=== PATIENT | male | born 1950 | race Caucasian/White ===

== ENCOUNTER 2016-07-15 18:17 | Inpatient (IN) | payer OTHER ==
[2016-07-15] MEDS ORDERED: HEPARIN IV ONE (18:44)
[2016-07-15] MEDS ORDERED: ALBUTEROL NEB INH ONE (18:47)
[2016-07-15] MEDS ORDERED: DUONEB (A & A) INH ONE (18:47)
--- NOTE | 2016-07-15 18:48 | PROVIDER DOCUMENTATION ---
HPI-Respiratory General <King Connors - Last Filed: 07/15/16 18:55> - General Source: patient - History of Present Illness-Resp Severity in ED: reports: moderate Onset/Duration: reports: other (1 month) Timing: reports: still present Cough Quality/Degree: reports: mild, dry cough Current Respiratory Medication Therapy: Initiated see nurses note Associated Symptoms: reports: cough, dizziness, shortness of breath Similar Symptoms Previously?: No Recently seen or treated by another doctor?: Yes <Mindy North - Last Filed: 07/15/16 19:57> - General Chief Complaint: Shortness of Breath Time Seen by Provider: 07/15/16 18:21 Allergies/Adverse Reactions: Patient Allergies Allergy/AdvReac Type Severity Reaction Status Date / Time No Known Allergies Allergy Verified 09/20/13 15:38 Home Medications: Home Medication List Medication Instructions Recorded Confirmed Last Taken Type Esomeprazole [Nexium] 20 mg PO DAILY 05/02/12 09/15/15 09/15/15 History Amlodipine [Norvasc] 5 mg PO DAILY 05/05/12 09/15/15 09/15/15 History Losartan [Cozaar] 100 mg PO DAILY 05/05/12 09/15/15 09/15/15 History Duloxetine [Cymbalta] 120 mg PO DAILY 07/04/12 09/15/15 09/15/15 History ATORVAstatin [Lipitor] 10 mg PO DAILY 08/23/13 09/15/15 09/14/15 History Ondansetron [Zofran] 4 mg PO Q6H PRN PRN 08/23/13 09/15/15 09/25/13 12:00 History Sennosides/Docusate Sodium [Stool 1 each PO PRN PRN 08/23/13 09/15/15 08/21/13 08:00 History Softener Tablet] Armodafinil [Nuvigil] 250 mg PO DAILY 09/15/15 09/15/15 09/15/15 History Aspirin [Aspirin EC] 81 mg PO DAILY 09/15/15 09/15/15 09/15/15 History Celecoxib [Celebrex] 200 mg PO DAILY 09/15/15 09/15/15 09/15/15 History Dicyclomine [Bentyl] 10 mg PO AC + HS #10 capsule 09/15/15 Unknown Rx Fluticasone/Salmeterol [Advair 1 each IH BID 09/15/15 09/15/15 09/15/15 History 250-50 Diskus] Lorazepam [Ativan] 1 mg PO QHS 09/15/15 09/15/15 09/14/15 History Ondansetron HCl [Zofran] 4 mg PO Q4H PRN PRN #20 tablet 09/15/15 Unknown Rx - History of Present Illness-Resp Nature of Presenting Problem: 66 year old M presents to the ED with a cc of shortness of breath. PT states that 1 month ago he began getting epidural injections to his c-spine. PT states that between his first and second injection he began getting shortness of breath and some cough. PT was seen and received steroid shot, antibiotics, and inhaler for what he thought was bronchitis. Pt states that he followed up yesterday with his orthopedic doctor and explained his shortness of breath which since his last visit with a doctor has increased. PTs orthopedic doctor called pts PCP, Dr. Aaron Ruiz, for a follow up visit yesterday or today. Pt states that he got an appointment today with Dr. Ruiz. On arrival to his office, pts O2 sat was 74-75% on room air. PT was sent to the ED for labs and a CT. Dr. Ruiz called and discussed with Dr. Connors the CT results which showed bilateral PE. PT states in the last few days he has had ABD bloating, dizziness, nausea, and diarrhea. PT states 3 days ago he had some calf muscle tenderness but it resolved the next day. PT denies leg swelling, chest pain, or vomiting (Mindy North) Review of Systems - Adult - REVIEW OF SYSTEMS - ADULT Constitutional: denies: chills, fever Eyes: reports: no symptoms reported Ears, Nose, Mouth & Throat: denies: ear pain, sinus problem, throat pain Cardiovascular: denies: chest pain, edema, palpitations Respiratory: reports: cough, shortness of breath Gastrointestinal: reports: diarrhea, nausea. denies: abdominal pain, vomiting Genitourinary: reports: no symptoms reported Musculoskeletal: denies: muscle aches, muscle weakness Integumentary: denies: skin sores/ulcer, skin thickening Neurological: reports: dizziness/vertigo. denies: headache/migraines Psychiatric: reports: no symptoms reported Endocrine: reports: no symptoms reported Hematologic/Lymphatic: reports: no symptoms reported Allergic/Immunologic: reports: no symptoms reported All Other Systems: Reviewed and Negative <Mindy North - Last Filed: 07/15/16 19:57> Past History - Adult - PAST MEDICAL HISTORY-ADULT Review of Records: reports: Nursing Assessment Review, Medications Reviewed Major Childhood Illnesses: reports: denies history Cardiovascular: reports: HTN, hyperlipidemia, DC, other (small AAA) Respiratory: reports: COPD, sleep apnea Gastrointestinal: reports: GERD Obstetrical/Gynecological: reports: denies history Genitourinary: reports: denies history Musculoskeletal: reports: chronic pain Neurological: reports: denies history Endocrine/Immune: reports: Diabetes Other Conditions: reports: denies history - PRIOR SURGERIES/PROCEDURES Surgical/Procedure History: reports: cardiac stent, hernia repair, joint replacement, back/neck, other (TURP, retnia detachment) - IMMUNIZATION STATUS Childhood Immunizations: See Nurse Assessment Flu Vaccine: See Nurse Assessment - SOCIAL HISTORY Smoking: cigarettes, greater than 1 pack/day Provider spent 3-5 mins advising pt. on dangers of tobacco.: Discussed manners to quit use, and f/u contacts for add'l counseling. Substance Use: none/never Alcohol Use Frequency: never <Mindy North - Last Filed: 07/15/16 19:57> Physical Exam-General - PHYSICAL EXAM-ADULT Initial Vital Signs Reviewed: Yes - CONSTITUTIONAL General Appearance: appears well, alert, no apparent distress - RESPIRATORY Respiratory: chest non-tender, normal breath sounds, crackles (diffuse) - CARDIOVASCULAR Cardiovascular: normal peripheral pulses, regular rate, rhythm, no edema - GASTROINTESTINAL (ABDOMEN) Abdominal Exam: non tender, soft - MUSCULOSKELETAL Extremity: normal inspection, no pedal edema - SKIN Integumentary: normal color, normal turgor, warm/dry - PSYCHIATRIC Psych/Mental Status: normal mood/affect, normal thought content, normal thought process, oriented x 3 <Mindy North - Last Filed: 07/15/16 19:57> Progress - CT/MRI 1 CT Study: Angiogram (show fairly proximal and extensive right sided PE and segmental left sided PE, extensive changes of multiple bullae/COPD) <King Connors - Last Filed: 07/15/16 18:55> - EKG 1 Time of EKG reading by physician:: 18:31 EKG Read and Signed by:: King Connors EKG Interpretation (*Must complete 3 of following elements*): Abnormal Rate: 102 Rhythm: sinus tachycardia [place]: left Comments: possible left atrial enlargement - CONSULTS/PCP/HOSPITALIST Notification #1 *Consult/PCP/Hospitalist*: Dr. Boothe- Hospitalist Time Discussed: 19:56 Consult Disposition: Will see in ED, Admit <Mindy North - Last Filed: 07/15/16 19:57> Departure - Departure Time of Disposition Order: 18:54 Certified Medical Emergency: Emergent <King Connors - Last Filed: 07/15/16 18:55> <Mindy North - Last Filed: 07/15/16 19:57> - Departure DIAGNOSIS: Pulmonary emboli Qualifiers: Pulmonary embolism type: other Chronicity: acute Acute cor pulmonale presence: without acute cor pulmonale Qualified Code(s): I26.99 - Other pulmonary embolism without acute cor pulmonale Disposition: ADMITTED INPATIENT 09 Condition: Fair Attestation - Scribe Verification/Attestation Scribe:: Mindy North Acting as Scribe for:: King Connors Scribe documention review:: This chart was documented by a scribe and accurately reflects the service the provider performed and the decisions made by the provider. <Mindy North - Last Filed: 07/15/16 19:57> Physician Attestation - Physician Attestation I, the provider, attest to the following statement:: King Connors Physician documentation Attestation:: This documentation recorded by the scribe accurately reflects the service I personally performed and the decisions made by me. <Mindy North - Last Filed: 07/15/16 19:57>
[2016-07-15] MEDS ORDERED: ZOFRAN IV ONE (18:49)
[2016-07-15] MEDS ORDERED: NICODERM PATCH TD ONE (18:57)
[2016-07-15] MEDS: HEPARIN 25,000 UNITS/D5W 250 ML IV SCH (19:13)
[2016-07-15] MEDS ORDERED: TYLENOL PO PRN (23:42)
[2016-07-15] MEDS ORDERED: ZOFRAN IV PRN (23:42)
[2016-07-16 01:11] LABS: HEMOGLOBIN A1C 8.8 % (4.8-6.0)
[2016-07-16] MEDS: HUMALOG SUBQ SCH ×5 (03:14→21:32)
[2016-07-16 05:01] LABS: ALLEN TEST YES; BE 2.2 mmoll (-3.0-3.0); BLOOD TYPE ARTERIAL; DRAW SITE R RADIAL; METHB 1.3 % (0.0-1.5); O2(CT) 17.3 mL/dL (15.0-23.0); PCO2(98.6) 46 mmHg (35-45); PO2(98.6) 53 mmHg (60-100); SAMPLE BLOOD; SAO2 88.4 % (95.0-100.0); THB 14.5 g/dL (11.5-17.4); pH(98.6) 7.39 (7.35-7.45)
[2016-07-16 05:04] LABS: MODALITY VENTIMASK
--- NOTE | 2016-07-16 05:26 | HISTORY AND PHYSICAL ---
PRIMARY CARE PROVIDER: Dr. Aaron Ruiz. DATE AND TIME OF HISTORY AND PHYSICAL: July 15, 2016 at 2300. CHIEF COMPLAINT: Shortness of breath. HISTORY OF PRESENT ILLNESS: Mr. Enrique is a 66-year-old male who presented to the ER tonight after visiting his family doctor. Patient states yesterday that he was following up with his orthopedic doctor for a checkup after receiving an cervical epidural injection. He did report to his orthopedic doctor that he was having some shortness of breath. His physician was able to call Dr. Ruiz and get him an appointment for earlier today on July 15. Upon arrival to Dr. Ruiz's office, the patient's O2 saturation was 74%. Secondary to this, Dr. Ruiz did order stat labs as well as a stat CTA of the chest. His CTA pulmonary artery showed a fairly proximal and extensive right-sided PE and segmental left-sided PE. There were also extensive changes of multiple bullae and COPD changes. The patient reports that he had been short of breath for approximately 3 weeks. This has just progressively gotten worse. He did state that approximately 2 weeks ago that he did get seen at an urgent care, was given steroids, antibiotics, and inhaler for what was believed to be bronchitis. He also states for the past few days in addition to his shortness of breath that he has had abdominal bloating, dizziness, nausea, and diarrhea. Patient reports that his diarrhea has been going on for the past month though this weekend he did have up to 10 episodes of diarrhea in 1 day. The patient denies any headache, chest pain, abdominal pain, dysuria, urinary frequency, or pain, numbness or tingling in extremities. Upon arrival to the ER, the patient's oxygen saturation was 74% on room air. After placing the patient on nasal cannula, his oxygen saturation did improve into the low 80s. We have steadily increased his nasal cannula to up to 6 L though he is only reaching oxygen saturation of 88 so at this time we will switch him to a Ventimask. Patient has also already been started on the heparin drip per protocol by Dr. Connors, the ER physician. REVIEW OF SYSTEMS: A 14-point review of systems was conducted with the patient and all were negative except for pertinent positives mentioned in above HPI. PAST MEDICAL HISTORY: 1. Coronary artery disease status post myocardial infarction with stent placement in 2012. 2. COPD. 3. Diabetes mellitus type 2. 4. Gastroesophageal reflux disease. 5. Hyperlipidemia. 6. Hypertension. 7. Chronic pancreatitis. 8. Small abdominal aortic aneurysm for which he reports that his physician is currently just monitoring. 9. Patient also has chronic neck and low back pain. PAST SURGICAL HISTORY: 1. Cardiac stent placement in 2013 times 1. 2. Lumbar diskectomy with fusion. 3. Bilateral total knee replacements. 4. TURP. 5. Penile prosthesis. 6. Inguinal hernia surgery. 7. Umbilical hernia surgery. 8. Bilateral cataract surgery. SOCIAL HISTORY: He reports that he is a current everyday smoker and did previously smoke 2-1/2 packs per day though has now reduced this down to 1 pack per day within the last few weeks and does express that he is trying to quit smoking. He denies any alcohol or illicit drug use. He is retired and lives at home with his . FAMILY HISTORY: Positive for heart disease and hypertension in his father who in 2012. His mother has a history of hypertension, and abdominal aortic aneurysm and dementia, and she in 2013. He does have 1 sister who is healthy and 1 brother who has a history of brain cancer. ALLERGIES: No known allergies. HOME MEDICATIONS: 1. Norvasc 5 mg p.o. daily. 2. Nuvigil 250 mg p.o. daily. 3. Aspirin 81 mg p.o. daily. 4. Atenolol 25 mg p.o. daily. 5. Atorvastatin 10 mg p.o. daily. 6. Celebrex 200 mg p.o. daily. 7. Cymbalta 120 mg p.o. daily. 8. Advair Diskus 250/50 one inhaled twice daily. 9. Cozaar 100 mg p.o. daily. 10.Omeprazole 40 mg p.o. daily. 11.Zofran 4 mg p.o. q.4-6 hours p.r.n. for nausea. DIAGNOSTIC DATA: Laboratory results: White blood cell count 11.5. Hemoglobin 15.1. Hematocrit 46.1. Platelet count 314. PTT 27.8. D-dimer was 1.81. Sodium 130. Potassium 4.1. Chloride 91. Bicarbonate 27. BUN 13. Creatinine 0.8 with a GFR of greater than 60. Glucose 221. Hemoglobin A1c 8.8. Calcium 9.4. Liver function tests are within normal limits. Troponin less than 0.01. CK 57. Amylase 47. Lipase 28. TSH 1.2. Free T4 of 1.38. EKG showed sinus tachycardia with a possible left atrial enlargement and left axis deviation at a rate of 102. QTc was 445. CTA of pulmonary artery showed fairly proximal and extensive right-sided PE, and segmental left- sided PE, and extensive changes of multiple bullae, and COPD changes. PHYSICAL EXAMINATION: VITAL SIGNS: Temperature 98, respirations 22, heart rate 97, blood pressure is 117/81, oxygen saturation is 88% on Ventimask at 10 L. GENERAL: Mr. Enrique is a well-nourished, well-developed, pleasant 66-year-old male who is resting comfortably in the ER stretcher. He was in no acute distress. He was awake, alert, and able to answer all questions appropriately. HEENT: Head is atraumatic, normocephalic. Pupils are equal, round, reactive to light, are 3 mm bilaterally and brisk. Subconjunctivae are pink. Oral mucosa is moist. Oropharynx is clear. NECK: Supple. Trachea midline. No JVD noted. No carotid bruits noted upon auscultation bilaterally. CARDIOVASCULAR: Patient has normal S1, S2. No obvious murmurs, gallops, or rubs appreciated with a regular rate and rhythm. PULMONARY: Patient has symmetrical chest expansion bilaterally. Lung sounds are clear in upon presentation lung mcgraw though in lower lung mcgraw he does have slight crackles noted. ABDOMEN: Soft. Does appear to be slightly distended though is nontender. Patient's bowel sounds are present in all 4 quadrants, are normoactive. EXTREMITIES: No cyanosis, clubbing or edema noted. Pulse, motor, and sensory are intact in all extremities at this time. Pedal pulses as well as radial pulses are 3 plus bilaterally. Capillary refill is less than 3. Patient has negative Homans sign noted in bilateral lower extremities. INTEGUMENTARY: Patient's skin is pink, warm, dry, and intact. No lesions or sores noted. NEUROLOGICAL: Patient is alert and oriented to person, place, time, and situation. Cranial nerves II through XII are grossly intact. ASSESSMENT AND PLAN: 1. Pulmonary embolism. For this, we have placed the patient on a heparin drip per protocol. We will closely monitor his PTT and watch for any signs of bleeding. We will also monitor his respiratory status closely. We will repeat an ABG in the morning. We also placed a consult with Dr. Whyte with pulmonology and we will await his evaluation and further recommendations as well and continue to watch him closely. 2. Hypoxia. We will continue with treatment as mentioned per number 1. Continue to follow. 3. Hypertension. At this time, the patient's blood pressure is within normal limits. The patient normally takes 3 different blood pressure medicines though at this time we will continue his Cozaar only and can continue his other medications if necessary and we will closely monitor his hemodynamic status. 4. Hyperlipidemia. We will continue his Lipitor 10 mg p.o. daily. 5. Chronic obstructive pulmonary disease. We have placed orders for the patient to receive DuoNeb treatments q.4 hours as needed and we will continue to follow. 6. Diabetes mellitus type 2. The patient reports that he normally takes metformin for this though he did receive contrast with his CT study so we will hold this at this time and place him on a sliding scale insulin lispro per low dose protocol and we will monitor his fingerstick blood sugars. The patient will be placed in ICU with telemetry. He will have vital signs q.1 hour. We will do strict intake and output q.8 hours. He will be on a diabetic diet. We have placed orders for echocardiogram as well as a venous ultrasound bilateral lower extremities in the morning to rule out any DVTs. We have placed orders for stool studies to be performed given that the patient reported that he has had diarrhea for approximately 1 month and we will await those results and continue to follow. We will repeat a CBC and BMP in the morning and we will monitor his PTT per protocol. Further orders and recommendations pending hospital course, diagnostic studies, and physician evaluation. TIME: Critical care time with this patient was approximately 40 minutes. Dictated by JODI Hamilton for Juan Boothe MD
[2016-07-16 06:38] LABS: MANUAL DIFF NEEDED? NO
[2016-07-16 06:56] LABS: BASO% 0.3 % (0.0-0.8); EOS# 0.09 X1000 (0.0-0.7); EOS% 0.8 % (0.0-10.0); HEMOGLOBIN 14.5 g/dL (14.0-18.0); IMM GRAN# 0.02 X1000 (0.0-0.04); IMM GRAN% 0.2 % (0.0-0.5); LYMPH# 1.14 X1000 (1.2-3.4); LYMPH% 9.8 % (20.5-51.1); MCH 28.6 PG (27-31); MCHC 33.7 g/dL (33-37); MCV 84.8 FL (81-99); MONO# 0.88 X1000 (0.11-0.59); MONO% 7.6 % (1.7-9.3); MPV 9.6 FL (7.4-10.4); NEUT% 81.3 % (42.2-75.2); PLT 306 X1000 (130-400); RBC 5.07 XMIL (4.7-6.1)
[2016-07-16 07:18] LABS: AGAP 14; BUN 10 mg/dL (8-22); CALCIUM 9.2 mg/dL (8.8-10.2); CHLORIDE 96 mmol/L (98-107); COSMO 276; POTASSIUM 4.6 mmol/L (3.5-5.1); SODIUM 137 mmol/L (136-145); TCO2 27 mmol/L (25-35)
[2016-07-16] MEDS ORDERED: SODIUM CHLORIDE 0.9% INJ SCH (08:30)
--- NOTE | 2016-07-16 09:12 | CONSULTATION ---
DATE OF CONSULTATION: 07/16/2016 REFERRING PHYSICIAN: Dr. Juan Boothe. CHIEF COMPLAINT: Shortness of breath. HISTORY OF PRESENT ILLNESS: This is a 66-year-old male with past medical history of CAD, COPD, diabetes, GERD, hyperlipidemia, hypertension, chronic pancreatitis that presented to the emergency room with complaint shortness of breath. He was found to be hypoxic and diagnosed with a pulmonary embolism. Patient also complains of recent abdominal bloating , dizziness, nausea and diarrhea. He is currently on a Ventimask and tolerating well. He denies any headache, chest pain, abdominal pain, history of urinary frequency, or pain, numbness or tingling to the extremities. He will be admitted to the floor for further evaluation and management and treatment. REVIEW OF SYSTEMS: A 10-point review of systems was conducted. Pertinent as noted in the HPI, otherwise noncontributory. PAST MEDICAL HISTORY: As mentioned in HPI, otherwise noncontributory. PAST SURGICAL HISTORY: Cardiac stents, lumbar diskectomy with fusion, bilateral total knee replacements, TURP, penile prosthesis, inguinal hernia repair, umbilical hernia repair, bilateral cataracts. SOCIAL HISTORY: Current 1 pack per day smoker. Denies use of alcohol or illicit drugs. Lives at home with his . FAMILY HISTORY: Notable for hypertension, AAA, dementia and brain cancer. ALLERGIES: No known drug allergies. ACTIVE MEDICATIONS: Tylenol, DuoNeb, Lipitor, heparin, Humalog, Cozaar, NicoDerm, Zofran and Pepcid. PHYSICAL EXAMINATION: Vital Signs: Temperature 98, heart rate 102, respiratory rate 19 blood pressure 142/90, oxygen saturation 98%. General: Awake, alert, sitting up in bed, no acute distress noted. HEENT: Normocephalic and atraumatic. PERRL. Cardiovascular: Regular rate and rhythm. S1, S2 present. Chest: Reduced entry. Abdomen: Soft, bowel sounds present in all quadrants. Extremities: No edema noted. Skin: Warm, dry and intact. Neurologic: Alert and oriented x3. No focal deficits. LABS AND INVESTIGATIONS: WBC 11.59, RBC is 5.7, hemoglobin 14.5, hematocrit 43 , platelet count 306. Sodium 137, potassium 4.6, chloride 96, CO2 27, anion gap 14, glucose 157 , BUN 10, creatinine 0.6. ASSESSMENT AND PLAN: This is a 66-year-old male with a past medical history mentioned in History of present illness. The patient is seen in the hospital with complaints of shortness of breath. He was found to have a pulmonary embolism, in which he will continue his heparin drip. Continue daily arterial blood gases and supply supplemental oxygen as needed. He is also found to be hypoxic, for which we will supply supplemental oxygen. COPD is a co- morbidity. The patient was also hypertensive. Continue to monitor vitals per floor routine and continue with Cozaar, as needed DuoNebs for chronic obstructive pulmonary disease, and pattern fingersticks with sliding scale insulin for his diabetes. Further recommendations pending diagnostic studies. Thanks for the courtesy of this consultation. Dictated by JODI Trevizo for Mago Whyte MD MTDD
[2016-07-16] MEDS: DUONEB (A & A) INH PRN ×3 (09:16→23:36)
[2016-07-16] MEDS: PEPCID IV SCH ×2 (09:37→21:27)
[2016-07-16] MEDS: COZAAR PO SCH (09:44)
[2016-07-16] MEDS: LIPITOR PO SCH (09:44)
[2016-07-16] MEDS: HEPARIN 25,000 UNITS/D5W 250 ML IV SCH ×2 (10:17→22:26)
[2016-07-16] MEDS ORDERED: HEPARIN 25,000 UNITS/D5W 250 ML IV SCH ×3 (11:21→22:08)
[2016-07-16] MEDS ORDERED: HEPARIN IV ONE ×2 (15:29→22:06)
[2016-07-16] MEDS: OFIRMEV 1000 MG/ISOTONIC SOLN 100 ML IV SCH ×2 (17:02→21:27)
--- NOTE | 2016-07-16 17:34 | ECHO REPORT ---
ORDER DATE: 07/16/2016 INDICATION: A 66-year-old male with pulmonary embolism, hypoxia, COPD, and coronary artery disease. M-MODE MEASUREMENTS: Right ventricle: 3.7 cm. Left ventricle end diastole: 3.5 cm. Left ventricle end systole: 2.2 cm. Posterior wall: 1.3 cm. Interventricular septum: 1.3 cm. Left atrium: 4.8 cm. Aortic root: 3.7 cm. SUMMARY OF 2-DIMENSIONAL IMAGIN. Left ventricular function is normal. Ejection fraction is estimated at 70%-75%. No wall motion abnormality noted. 2. The right ventricle is moderately dilated. Function is good. 3. The left ventricle is mildly hypertrophic. 4. The aortic valve looks grossly normal. Color flow mapping shows no regurgitation. 5. The tricuspid valve shows [id number] regurgitation. 6. The inferior vena cava is not dilated. 7. The pulmonary systolic pressure is estimated to be at 100 mmHg. 8. The pulmonary valve looks normal. Color flow mapping is unremarkable. 9. The mitral valve looks normal. Color flow mapping is unremarkable. 10.Pulse wave Doppler of mitral inflow shows reversal of the E and the A wave. 11.Tissue Doppler of septal and lateral mitral annulus averages 8 cm. 12.There is no evidence of significant diastolic dysfunction. 13.The atria do not appear to be dilated. 14.The inferior vena cava is not dilated. SUMMARY: In summary, this study shows: 1. Excellent left ventricular systolic function. 2. Sclerosis of the aortic valve without stenosis. 3. Severe pulmonary hypertension estimated at 100 mmHg. 4. There is no diastolic dysfunction. Clinical correlation is recommended.
[2016-07-16] MEDS ORDERED: AYR NASAL SPRAY NAS PRN (17:45)
[2016-07-16] MEDS: NICODERM PATCH TD SCH (21:27)
[2016-07-17 03:24] LABS: AGAP 11; BUN 10 mg/dL (8-22); CALCIUM 9.2 mg/dL (8.8-10.2); CHLORIDE 97 mmol/L (98-107); COSMO 277; POTASSIUM 4.4 mmol/L (3.5-5.1); SODIUM 136 mmol/L (136-145); TCO2 28 mmol/L (25-35)
[2016-07-17 04:41] LABS: ALLEN TEST YES; BE 1.9 mmoll (-3.0-3.0); BLOOD TYPE ARTERIAL; DRAW SITE R RADIAL; METHB 1.1 % (0.0-1.5); PCO2(98.6) 44 mmHg (35-45); PO2(98.6) 81 mmHg (60-100); SAMPLE BLOOD; THB 15.9 g/dL (11.5-17.4)
[2016-07-17 04:43] LABS: MODALITY VENTIMASK
[2016-07-17] MEDS: OFIRMEV 1000 MG/ISOTONIC SOLN 100 ML IV SCH ×4 (04:43→23:01)
[2016-07-17] MEDS: HUMALOG SUBQ SCH ×4 (06:26→20:19)
[2016-07-17] MEDS: DUONEB (A & A) INH PRN ×2 (07:52→11:36)
[2016-07-17] MEDS: LIPITOR PO SCH (09:28)
[2016-07-17] MEDS: COZAAR PO SCH (09:28)
[2016-07-17] MEDS: PEPCID IV SCH ×2 (09:28→20:19)
[2016-07-17] MEDS: HEPARIN 25,000 UNITS/D5W 250 ML IV SCH (13:36)
--- NOTE | 2016-07-17 15:21 | PROGRESS NOTE ---
DATE: 07/17/2016 SUBJECTIVE: Patient reports feeling less short of breath in comparing with yesterday. No fever or chills reported. OBJECTIVE: Vital Signs: Temperature 98.2 degrees, heart rate 96, respiratory rate 16, blood pressure 146/83, O2 saturation 94% on 4 L nasal cannula. General Examination: This is a 66-year- old male, lying in bed in no acute distress. HEENT: Head is normocephalic, atraumatic. Anicteric sclerae and pale conjunctivae. Mucous membranes moist. Neck: Supple. No JVD noted. No carotid bruits. No lymphadenopathy. No thyromegaly. Cardiovascular exam: S1, S2 heard. No murmurs, gallops, or rubs. Regular rate and rhythm. Respiratory exam: Decreased breath sounds globally. There is wheezing in both bases, but patient is not using any accessory muscles or having work of breathing. Abdomen: Soft, nontender to palpation. Bowel sounds present. No organomegaly. Extremities: No clubbing, cyanosis, or edema. Peripheral pulses present in both legs. Neurological exam: Patient is alert and oriented x3. Able to move 4 extremities. Cranial nerves 2-12 grossly normal. LABORATORY DATA: CBC is not available. ABG shows pH 7.43, pCO2 44, PO2 81. BMP unremarkable, except glucose 210. ASSESSMENT: 1. Extensive pulmonary embolism. 2. Chronic obstructive pulmonary disease. 3. Left lower lobe pneumonia. 4. Hypertension. 5. Hyperlipidemia. 6. Diabetes mellitus type 2. PLAN: The patient was admitted to the hospital because of hypoxia and CT angio of the chest did reveal extensive pulmonary embolism. Patient currently is on heparin drip. He is requiring 4 L of oxygen by nasal cannula. He does not require any at home. At this point, we are going to continue with the same anticoagulant. We will provide nebulization with DuoNeb 4 times per day. Also, because the CT shows pneumonia on the left side of the lung, we will add ceftriaxone and azithromycin to his current treatment. For diabetes, we will continue with the sliding scale insulin on a moderate level. We are planning to keep this patient over the weekend and see how he does on Wednesday.
[2016-07-17] MEDS: DUONEB (A & A) INH SCH ×2 (15:52→19:44)
[2016-07-17] MEDS: ROCEPHIN 2 GM/NS 50 ML IV SCH (16:14)
[2016-07-17] MEDS: ZITHROMAX 500 MG/NS 250 ML IV SCH (17:38)
[2016-07-17] MEDS: NICODERM PATCH TD SCH (20:19)
[2016-07-18] MEDS: OFIRMEV 1000 MG/ISOTONIC SOLN 100 ML IV SCH ×5 (03:12→22:25)
[2016-07-18] MEDS: HEPARIN 25,000 UNITS/D5W 250 ML IV SCH ×3 (03:12→15:32)
[2016-07-18] MEDS: DUONEB (A & A) INH SCH ×5 (03:22→20:26)
[2016-07-18 03:43] LABS: ALLEN TEST YES; BE 1.4 mmoll (-3.0-3.0); BLOOD TYPE ARTERIAL; DRAW SITE R BRACHIAL; METHB 1.5 % (0.0-1.5); O2(CT) 18.8 mL/dL (15.0-23.0); PCO2(98.6) 43 mmHg (35-45); PO2(98.6) 72 mmHg (60-100); SAMPLE BLOOD; SAO2 96.2 % (95.0-100.0); THB 14.4 g/dL (11.5-17.4)
[2016-07-18 03:44] LABS: MODALITY CANNULA
[2016-07-18 05:15] LABS: MANUAL DIFF NEEDED? NO
[2016-07-18 05:23] LABS: BASO% 0.4 % (0.0-0.8); EOS# 0.18 X1000 (0.0-0.7); HEMATOCRIT 41.5 % (42.0-52.0); HEMOGLOBIN 13.8 g/dL (14.0-18.0); IMM GRAN# 0.04 X1000 (0.0-0.04); IMM GRAN% 0.4 % (0.0-0.5); LYMPH# 2.14 X1000 (1.2-3.4); LYMPH% 23.8 % (20.5-51.1); MCH 28.4 PG (27-31); MCHC 33.3 g/dL (33-37); MCV 85.4 FL (81-99); MPV 9.7 FL (7.4-10.4); NEUT% 63.4 % (42.2-75.2); PLT 322 X1000 (130-400); RBC 4.86 XMIL (4.7-6.1)
[2016-07-18 05:33] LABS: AGAP 13; BUN 11 mg/dL (8-22); CALCIUM 8.7 mg/dL (8.8-10.2); CHLORIDE 97 mmol/L (98-107); COSMO 279; POTASSIUM 3.9 mmol/L (3.5-5.1); SODIUM 136 mmol/L (136-145); TCO2 26 mmol/L (25-35)
[2016-07-18] MEDS: HUMALOG SUBQ SCH ×4 (06:14→22:18)
[2016-07-18] MEDS ORDERED: LANTUS SUBQ SCH (09:00)
[2016-07-18] MEDS: COZAAR PO SCH (09:50)
[2016-07-18] MEDS: PEPCID IV SCH ×2 (09:50→20:39)
[2016-07-18] MEDS: LIPITOR PO SCH (09:50)
--- NOTE | 2016-07-18 12:01 | PROGRESS NOTE ---
DATE: 07/18/2016 SUBJECTIVE: The patient reports feeling less short of breath. He denies any chest pain, any fever or chills. OBJECTIVE: Vital Signs: Temperature 98.0 degrees, heart rate 94, respiratory rate 16, blood pressure 138/95, O2 saturation 92% on 3 L nasal cannula. General Examination: This is a 66-year- old male, lying in bed in no acute distress. HEENT: Head is normocephalic, atraumatic. Anicteric sclerae and pale conjunctivae. Mucous membranes are moist. Neck: Supple. No JVD noted. No carotid bruits. No lymphadenopathy. No thyromegaly. Cardiovascular exam: S1, S2 heard. No murmurs, gallops, or rubs. Regular rate and rhythm. Respiratory exam: Clear bilaterally to auscultation. Wheezing still present in both bases, but definitely much better in comparing with yesterday. Patient not using any accessory muscles or having work of breathing. Abdomen: Soft, nontender to palpation. Bowel sounds present. No organomegaly. Extremities: No clubbing, cyanosis, or edema. Peripheral pulses present in both legs. Neurological exam: Patient alert oriented x3. Able to move four extremities. Cranial nerves 2-12 grossly normal. LABORATORY DATA: White cell count 9.01, hemoglobin 13.8, hematocrit 41.5, platelets 322. ABG shows pH 7.4, pCO2 43, PO2 72. BMP unremarkable, except glucose 228. ASSESSMENT/PLAN: 1. Extensive pulmonary embolism. 2. Chronic obstructive pulmonary disease. 3. Left lower lobe pneumonia. 4. Hypertension. 5. Hyperlipidemia. 6. Diabetes type 2. Patient was admitted to the hospital because of hypoxia. X-rays of the chest have shown pulmonary embolism. The patient has been started on heparin drip. Clinically, he is feeling fine. His oxygen requirements are trending down today requiring 3 L by nasal cannula. Clinically, he is not short of breath anymore. We will continue for treatment of pneumonia with the same antibiotic coverage; in this case, give ceftriaxone and azithromycin. He is getting breathing treatment 4 times per day with DuoNeb. For diabetes mellitus, he reports that he was not taking anything. We are going to start Lantus 20 units and sliding scale insulin as well. We will see how he does. On Wednesday we are going to check a chest x-ray to see how he is doing.
[2016-07-18] MEDS: ROCEPHIN 2 GM/NS 50 ML IV SCH (14:57)
[2016-07-18] MEDS: ZITHROMAX 500 MG/NS 250 ML IV SCH (15:46)
[2016-07-18] MEDS: NICODERM PATCH TD SCH (20:39)
[2016-07-19] MEDS: HEPARIN 25,000 UNITS/D5W 250 ML IV SCH ×2 (03:06→05:39)
[2016-07-19] MEDS: OFIRMEV 1000 MG/ISOTONIC SOLN 100 ML IV SCH ×4 (03:06→20:48)
[2016-07-19] MEDS: DUONEB (A & A) INH SCH ×4 (03:44→20:00)
[2016-07-19 05:26] LABS: MANUAL DIFF NEEDED? NO
[2016-07-19 05:33] LABS: BASO% 0.6 % (0.0-0.8); EOS# 0.16 X1000 (0.0-0.7); EOS% 1.9 % (0.0-10.0); HEMATOCRIT 42.8 % (42.0-52.0); HEMOGLOBIN 14.3 g/dL (14.0-18.0); IMM GRAN# 0.03 X1000 (0.0-0.04); IMM GRAN% 0.3 % (0.0-0.5); LYMPH# 2.01 X1000 (1.2-3.4); LYMPH% 23.3 % (20.5-51.1); MCH 28.4 PG (27-31); MCHC 33.4 g/dL (33-37); MCV 85.1 FL (81-99); MONO# 0.72 X1000 (0.11-0.59); MONO% 8.3 % (1.7-9.3); MPV 9.7 FL (7.4-10.4); NEUT% 65.6 % (42.2-75.2); PLT 350 X1000 (130-400); RBC 5.03 XMIL (4.7-6.1)
[2016-07-19 05:51] LABS: AGAP 15; BUN 9 mg/dL (8-22); CALCIUM 9.2 mg/dL (8.8-10.2); CHLORIDE 97 mmol/L (98-107); COSMO 274; POTASSIUM 3.9 mmol/L (3.5-5.1); SODIUM 135 mmol/L (136-145); TCO2 23 mmol/L (25-35)
[2016-07-19] MEDS ORDERED: HEPARIN 25,000 UNITS/D5W 250 ML IV SCH (05:51)
[2016-07-19] MEDS: HUMALOG SUBQ SCH ×4 (06:09→20:49)
[2016-07-19] MEDS ORDERED: INSULIN PEN NEEDLES ONE (09:02)
[2016-07-19] MEDS: COZAAR PO SCH (09:09)
[2016-07-19] MEDS: LIPITOR PO SCH (09:09)
[2016-07-19] MEDS: LANTUS SUBQ SCH (09:10)
[2016-07-19] MEDS: PEPCID IV SCH ×2 (09:10→20:48)
[2016-07-19] MEDS: XARELTO PO SCH ×2 (09:44→20:49)
--- NOTE | 2016-07-19 10:27 | PROGRESS NOTE ---
DATE: 07/19/2016 SUBJECTIVE: Patient reports feeling fine. No shortness of breath. The patient was sitting in the chair yesterday. No fever or chills reported. OBJECTIVE: Vital Signs: Temperature 98 degrees, heart rate 97, respiratory rate 16, blood pressure 134/94, O2 saturation 92% on room air. General Examination: This is a 66-year-old, male, lying in bed, in no acute distress. HEENT: Head is normocephalic and atraumatic. Anicteric sclerae and pale conjunctivae. Mucous membranes moist. Neck: Supple. No JVD noted. No carotid bruits. No lymphadenopathy. No thyromegaly. Cardiovascular Examination: S1 and S2 heard. No murmurs, gallops, or rubs. Regular rate and rhythm. Respiratory Examination: Clear bilaterally to auscultation. No work of breathing or using accessory muscles. Abdomen: Soft, nontender to palpation. Bowel sounds present. No organomegaly. Extremities: No clubbing, cyanosis, or edema. Peripheral pulses present in both legs. Neurological Examination: Patient is alert and oriented x3. Able to move 4 extremities. Cranial nerves 2-12 grossly normal. Laboratory Data: CBC and BMP are completely unremarkable except for glucose of 199. ASSESSMENT: 1. Extensive pulmonary embolism. 2. Chronic obstructive pulmonary disease. 3. Left lower lobe pneumonia. 4. Hypertension. 5. Hyperlipidemia. 6. Diabetes mellitus type 2. PLAN: Patient was admitted to the hospital for extensive pulmonary embolism and hypoxic. Patient was requiring 5-6 L of oxygen by nasal cannula. Beside pulmonary embolism, the CT angiogram of the chest shows also left lower lobe pneumonia. Patient is on heparin drip for this condition and also for pneumonia, he is on ceftriaxone and azithromycin. The patient is doing fine. His oxygen needs are fewer today. He is clinically feeling better. At this point, we are going to switch the anticoagulation to Xarelto. We are going to continue with the same antibiotic therapy and at discharge, we will continue with Omnicef 300 mg p.o. b.i.d. at discharge. For diabetes that was not well controlled, we have started him on Lantus and because the glucose is still high, we have increased the dose to 25 units daily. He is okay to going home with insulin. We will continue with breathing treatment.
[2016-07-19] MEDS: ROCEPHIN 2 GM/NS 50 ML IV SCH (14:42)
[2016-07-19] MEDS: ZITHROMAX 500 MG/NS 250 ML IV SCH (15:41)
[2016-07-19] MEDS: NICODERM PATCH TD SCH (20:59)
[2016-07-19] MEDS ORDERED: MORPHINE IV ONE (21:12)
[2016-07-20] MEDS: DUONEB (A & A) INH SCH ×2 (03:22→07:41)
[2016-07-20] MEDS: OFIRMEV 1000 MG/ISOTONIC SOLN 100 ML IV SCH ×3 (04:22→09:42)
[2016-07-20 05:19] LABS: MANUAL DIFF NEEDED? NO
[2016-07-20 05:29] LABS: BASO% 0.6 % (0.0-0.8); EOS# 0.17 X1000 (0.0-0.7); EOS% 2.4 % (0.0-10.0); HEMATOCRIT 43.1 % (42.0-52.0); HEMOGLOBIN 14.1 g/dL (14.0-18.0); LYMPH# 1.52 X1000 (1.2-3.4); LYMPH% 21.5 % (20.5-51.1); MCH 27.9 PG (27-31); MCHC 32.7 g/dL (33-37); MCV 85.2 FL (81-99); MONO# 0.73 X1000 (0.11-0.59); MONO% 10.3 % (1.7-9.3); MPV 9.7 FL (7.4-10.4); NEUT% 65.2 % (42.2-75.2); PLT 358 X1000 (130-400); RBC 5.06 XMIL (4.7-6.1)
[2016-07-20 05:36] LABS: AGAP 12; BUN 10 mg/dL (8-22); CALCIUM 9.2 mg/dL (8.8-10.2); CHLORIDE 97 mmol/L (98-107); COSMO 275; POTASSIUM 4.1 mmol/L (3.5-5.1); SODIUM 135 mmol/L (136-145); TCO2 26 mmol/L (25-35)
[2016-07-20] MEDS: HUMALOG SUBQ SCH (06:33)
--- NOTE | 2016-07-20 08:58 | Diag Imaging Result Document ---
PROCEDURE NAME: CHEST-2 VIEWS - 07/20/2016 TWO VIEWS OF THE CHEST: FINDINGS: Compared to the previous study of 09/20/2013. Considering differences in technique, there has been no significant change in the appearance of the chest. IMPRESSION: No evidence of acute disease.
[2016-07-20] MEDS: COZAAR PO SCH (09:42)
[2016-07-20] MEDS: LIPITOR PO SCH (09:43)
[2016-07-20] MEDS: PEPCID IV SCH (09:43)
[2016-07-20] MEDS: XARELTO PO SCH (09:43)
[2016-07-20] MEDS: LANTUS SUBQ SCH (09:44)
[2016-07-20 10:27] VITALS: BP 144/95
--- NOTE | 2016-07-21 08:43 | DISCHARGE SUMMARY ---
ADMISSION DATE: 07/16/2016 DISCHARGE DATE: 07/20/2016 CONSULTATIONS: Dr. Whyte of pulmonology. PERTINENT PROCEDURES: Echocardiogram showed an EF of 70-75% with no wall motion abnormality noted. Chest x-ray showed no evidence of acute disease. DISCHARGE DIAGNOSES: 1. Extensive pulmonary embolism with hypoxemia. The patient to go home on Xarelto 15 mg by mouth twice a day and then 20 mg by mouth daily. Hypoxemia has resolved. 2. Chronic obstructive pulmonary disease without exacerbation. 3. Lower left lobe pneumonia. Patient will continue on oral Omnicef for 7 days. 4. Hypertension. Continue home medications. 5. Hyperlipidemia. Continue home medications. 6. Diabetes mellitus type 2. Continue home medications. HOSPITAL COURSE: Briefly, Mr. Enrique is a 66-year-old, male who presented to the ED after visiting his family doctor the day before admission. Patient was following up with his orthopedic doctor for a checkup after receiving a cervical epidural injection. He did report to his orthopedic doctor that he was having some shortness of breath. He did get an appointment with his primary care physician, Dr. Ruiz, early on the day of July 15. Upon arrival, the patient's O2 saturation was 74%. Secondary to this, Dr. Ruiz did order stat labs as well as a stat CTA of the chest. His CTA showed a fairly proximal and extensive right-sided PE and segmental left-sided PE. There were also extensive changes of multiple emboli and COPD changes. Patient's shortness of breath had been ongoing for 3 weeks. It has progressively gotten worse. He did see an urgent care 2 weeks ago who gave him a steroid shot as well as antibiotics and an inhaler for what was believed to be bronchitis. While in the ED, patient's O2 saturation remained in the 70s. He was placed on nasal cannula where his saturation improved into the low 80s. Continued titration in his O2. Patient was up to 6 L at only 88%. He was switched to a Ventimask and was started on a heparin drip per protocol, and admitted to the ICU. The chest also showed some left lower lobe pneumonia for which he was placed on IV antibiotics. They were able to wean the patient's oxygen down. Clinically, he was feeling better. He was switched to p.o. anticoagulation, to Xarelto. His diabetes was not well controlled. He was started on Lantus with an increase to 25 units daily. The patient is now tolerating room air. VITAL SIGNS: At the time of discharge, temperature is 98.4 degrees, heart rate 103, respirations 20, blood pressure is 147/90, O2 is 98% on room air. DISCHARGE DIET: Diabetic. DISCHARGE MEDICATIONS: 1. Cozaar 100 mg p.o. daily. 2. Norvasc 5 mg p.o. daily. 3. Cymbalta 120 mg p.o. daily. 4. Zofran 4 mg p.o. q.6 hours p.r.n. 5. Lipitor 10 mg p.o. daily. 6. Nuvigil 250 mg p.o. daily. 7. Aspirin 81 mg p.o. daily. 8. Advair Diskus 250/50 one each inhaled b.i.d. 9. Prilosec 40 mg p.o. daily. 10. Tenormin 25 mg p.o. daily. 11. Lantus 25 units subcutaneously q.a.m. 12. Creon ER 24,000 unit capsules 1 each p.o. daily. 13. Glucophage 500 mg p.o. b.i.d. 14. Omnicef 300 mg p.o. b.i.d. for 7 days. 15. Xarelto 15 mg p.o. b.i.d. for 21 days. 16. Xarelto 20 mg p.o. daily . FOLLOWUP: The patient is being discharged home with Lantus as well as p.o. Xarelto. He will need to follow up with his primary care physician, Dr. Aaron Ruiz, in 2 weeks. Patient can return to the ED for any worsening of symptoms. Discharge time greater than 30 minutes. Dictated by JODI Spears for Iraj Kim MD
--- NOTE | 2016-07-21 12:39 | Extremity Venous Study ---
PROCEDURE NAME: Venous U/S Bilateral Legs - 07/16/2016 REFERRING PHYSICIAN: Dory.. READING PHYSICIAN: Dr. Sanderson. RN CASE MGR: Jamar. INDICATION: Extensive pulmonary embolus. FINDINGS: The right lower extremity veins are imaged first. The common femoral, deep femoral, superficial femoral, popliteal and peroneal veins appear to be compressible with forward flow and without thrombosis. However the right posterior tibial vein does have thrombosis and is noncompressible. The right greater saphenous vein is compressible and without thrombus. The deep and superficial veins of the left lower extremity were imaged throughout their course. All are compressible with forward flow. INTERPRETATION: There is acute deep vein thrombosis of the right posterior tibial vein.
== END 2016-07-20 12:00 | disposition home or self-care (01) | DRG 175 ==
LOC: ED 18:17 → EDIPHOLD 07-16 01:11 → 3S 07-16 14:57
PROVIDERS: ATTEND Internal Medicine
DX: I26.99 Other pulmonary embolism without acute cor pulmonale (principal); J18.9 Pneumonia, unspecified organism; K86.1 Other chronic pancreatitis; J44.0 Chronic obstructive pulmonary disease with (acute) lower respiratory infection; I10 Essential (primary) hypertension; R09.02 Hypoxemia; E78.5 Hyperlipidemia, unspecified; E11.9 Type 2 diabetes mellitus without complications; I25.10 Atherosclerotic heart disease of native coronary artery without angina pectoris; K21.9 Gastro-esophageal reflux disease without esophagitis; I71.4 Abdominal aortic aneurysm, without rupture; G89.29 Other chronic pain; M54.5 Low back pain; M54.2 Cervicalgia; Z96.653 Presence of artificial knee joint, bilateral; F17.210 Nicotine dependence, cigarettes, uncomplicated; I25.2 Old myocardial infarction; Z95.5 Presence of coronary angioplasty implant and graft; Z98.1 Arthrodesis status; Z82.49 Family history of ischemic heart disease and other diseases of the circulatory system; Z80.8 Family history of malignant neoplasm of other organs or systems; Z79.82 Long term (current) use of aspirin; Z79.899 Other long term (current) drug therapy; Z79.51 Long term (current) use of inhaled steroids; Z79.1 Long term (current) use of non-steroidal anti-inflammatories (NSAID)
CPT/HCPCS: 36415; 71020; 71275; 80048; 80053; 82150; 82270; 82550; 82805; 82948; 83036; 83690; 84439; 84443; 84484; 85025; 85027; 85379; 85730; 87045; 87046; 87324; 89055; 93005; 93306; 93970; 94640; 94761; 94762; 96365; 96366; 96375; J0131; J0456; J0696; J1644; J1815; J2270; J2405; Q9967; S0028

== ENCOUNTER 2018-05-29 11:17 | Inpatient (IN) ==
[2018-05-29 11:40] LABS: BE -0.8 mmoll (-3.0-3.0); BLOOD TYPE ARTERIAL; HCO3-(ACT) 23.9 mmoll (20.0-26.0); O2(CT) 17.3 mL/dL (15.0-23.0); PCO2(98.6) 30 mmHg (35-45); SAMPLE BLOOD; SAO2 87.8 % (95.0-100.0); THB 14.5 g/dL (11.5-17.4); pH(98.6) 7.47 (7.35-7.45)
[2018-05-29 11:43] LABS: MODALITY CANNULA
[2018-05-29 11:44] LABS: ALLEN TEST NO; PO2(98.6) 48 mmHg (60-100)
[2018-05-29] MEDS ORDERED: DUONEB (A & A) INH ONE (11:45)
[2018-05-29 11:57] LABS: INR 0.93; PROTIME 12.9 Seconds (11.0-16.0)
[2018-05-29 11:58] LABS: BASO# 0.07 X1000 (0.0-0.2); BASO% 0.6 % (0.0-0.8); EOS# 0.06 X1000 (0.0-0.7); EOS% 0.5 % (0.0-10.0); HEMATOCRIT 39.2 % (42.0-52.0); HEMOGLOBIN 13.1 g/dL (14.0-18.0); IMM GRAN# 0.02 X1000 (0.0-0.04); IMM GRAN% 0.2 % (0.0-0.5); LYMPH# 0.93 X1000 (1.2-3.4); LYMPH% 8.1 % (20.5-51.1); MCH 33.2 PG (27-31); MCHC 33.4 g/dL (33-37); MCV 99.5 FL (81-99); MONO# 0.69 X1000 (0.11-0.59); MPV 9.9 FL (7.4-10.4); NEUT# 9.68 X1000 (1.4-6.5); NEUT% 84.6 % (42.2-75.2); PLT 317 X1000 (130-400); PTT 29.4 Seconds (22.3-41.8); RBC 3.94 XMIL (4.7-6.1); RDW 16.5 % (11.5-14.5); WBC 11.45 X1000 (4.8-10.8)
[2018-05-29 12:06] LABS: AGAP 15; ALBUMIN 3.9 g/dL (3.5-5.0); ALKALINE PHOSPHATASE 117 U/L (32-122); BUN 21 mg/dL (8-22); CALCIUM 8.9 mg/dL (8.8-10.2); CHLORIDE 96 mmol/L (98-107); CK PROFILE 48 U/L (24-204); COSMO 282; CREATININE 0.8 mg/dL (0.7-1.2); ESTIMATED GFR > 60; GLUCOSE 299 mg/dL (70-104); GOT 22 U/L (10-34); GPT 15 U/L (10-44); MAGNESIUM 1.7 mg/dL (1.5-2.7); POTASSIUM 5.5 mmol/L (3.5-5.1); SODIUM 134 mmol/L (136-145); TCO2 24 mmol/L (25-35); TOTAL PROTEIN 6.5 g/dL (6.3-8.3)
--- NOTE | 2018-05-29 13:09 | Diag Imaging Result Doc PS360 ---
CHEST-2 VIEWS - 05/29/2018 INDICATION: SOB COMPARISON: 07/20/2016 FINDINGS: There is moderate infiltrate throughout the left lung mainly in the left upper lobe. There is a trace left pleural effusion. Heart size is normal. IMPRESSION: Multilobar bronchopneumonia in the left lung. Trace left pleural effusion. Electronically signed by Brandt Bejarano 05/29/2018 1:07 PM
--- NOTE | 2018-05-29 13:29 | EKG Report ---
Test Performed on : 05/29/2018 11:18:50 AM Test Reason : SOB Blood Pressure : / mmHG Vent. Rate : 090 BPM Atrial Rate : 090 BPM P-R Int : 166 ms QRS Dur : 084 ms QT Int : 372 ms P-R-T Axes : 082 098 067 degrees QTc Int : 455 ms Normal sinus rhythm. Rightward axis Inferior infarct , age undetermined Abnormal ECG When compared with ECG of 15-JUL-2016 18:31, No significant change was found Unconfirmed Result
--- NOTE | 2018-05-29 14:52 | Diag Imaging Result Doc PS360 ---
CT ANGIOGRM PULMONARY ARTERIES - 05/29/2018 INDICATION: r/o pe TECHNIQUE: Axial CT images were obtained after administering intravenous contrast. Coronal MIP images were generated. COMPARISON: 01/15/2017 FINDINGS: There are numerous acute pulmonary emboli throughout most of the lobar arteries and several segmental arteries. There is a moderate clot burden. There are some grossly stable reactive mediastinal lymph nodes but no adenopathy. There is moderate emphysema. There is mild infiltrate bilaterally mainly in the left lung involving multiple lobes. There is a new pulmonary nodule or nodular infiltrate in the right upper lobe near the minor fissure. This measures about 1.2 cm. Upper abdominal images are normal. There are moderate degenerative changes of the spine. No acute or suspicious bony lesion. IMPRESSION: 1. Rather extensive bilateral pulmonary emboli. 2. Faint nonspecific infiltrates bilaterally. This may represent pulmonary hemorrhage from infarctions or pneumonia. 3. Pulmonary nodule in the right upper lobe. 4. This report was discussed with Dr. Galeano on 05/29/2018 at 2:45 PM and was readback. This exam was performed using automated exposure control, adjustment of mA or kV according to patient size, and/or use of iterative reconstruction technique Electronically signed by Brandt Bejarano 05/29/2018 2:49 PM
[2018-05-29] MEDS ORDERED: XARELTO PO ONE (14:55)
[2018-05-29] MEDS ORDERED: HEPARIN 25,000 UNITS/D5W 25,000 UNIT/250 ML IV.SOLN IV SCH (15:00)
[2018-05-29] MEDS ORDERED: HEPARIN IV ONE (15:45)
--- NOTE | 2018-05-29 16:57 | PROVIDER DOCUMENTATION ---
This chart was entered by Char Lerner Scribe, acting as scribe for Syed Galeano MD. HPI-Respiratory General - General Chief Complaint: Shortness of Breath Stated Complaint: SOB Time Seen by Provider: 05/29/18 11:28 Source: patient Allergies/Adverse Reactions: Patient Allergies Allergy/AdvReac Type Severity Reaction Status Date / Time Sulfa (Sulfonamide Allergy Unknown Verified 08/30/17 11:02 Antibiotics) Home Medications: Home Medication List Medication Instructions Recorded Confirmed Last Taken Type Amlodipine [Norvasc] 5 mg PO DAILY 05/05/12 09/07/17 09/06/17 History Losartan [Cozaar] 100 mg PO DAILY 05/05/12 09/07/17 09/06/17 History Duloxetine [Cymbalta] 60 mg PO BID 07/04/12 09/07/17 09/06/17 History ATORVAstatin [Lipitor] 10 mg PO DAILY 08/23/13 09/07/17 09/06/17 History Ondansetron [Zofran] 4 mg PO Q6H PRN PRN 08/23/13 09/07/17 09/06/17 History Aspirin [Aspirin EC] 81 mg PO DAILY 09/15/15 09/07/17 1 Week Ago History ~08/31/17 Atenolol [Tenormin] 25 mg PO DAILY 07/15/16 09/07/17 09/06/17 08:00 History Omeprazole [Prilosec] 40 mg PO DAILY 07/15/16 09/07/17 09/06/17 History Metformin HCl [Glucophage] 500 mg PO BID #60 tablet 07/20/16 09/07/17 09/06/17 Rx Celecoxib [Celebrex] 100 mg PO BID 08/30/17 09/07/17 09/06/17 History Glimepiride [Amaryl] 4 mg PO BID 08/30/17 09/07/17 09/06/17 History Lipase/Protease/Amylase [Creon 10 249 mg PO TID 08/30/17 09/07/17 09/06/17 History EC Capsule] Modafinil 200 mg PO BID 08/30/17 09/07/17 09/06/17 History Testosterone Cypionate 100 mg IM DIRECTED 08/30/17 09/07/17 09/05/17 History Aspirin 325 mg PO BID #60 tablet 09/08/17 Unknown Rx Hydrocodone/APAP 10 mg/325 mg 1 each PO Q4-6H PRN PRN #40 tablet 09/08/17 Unknown Rx [[place]-10] Levofloxacin [Levaquin] 750 mg PO DAILY #7 tab 10/06/17 Unknown Rx Promethazine [Phenergan] 25 mg PO Q6H PRN PRN #10 tab 10/06/17 Unknown Rx - History of Present Illness-Resp Nature of Presenting Problem: 68 year old male presents to the ER via EMS with complaint of SOB x 3 days. Pt states he has a history of blood clots and heart attack with one stent placement. Quality of Pain: reports: sharp Onset/Duration: reports: 3 days ago Timing: reports: still present Cough Quality/Degree: reports: mild Associated Symptoms: reports: cough, shortness of breath Similar Symptoms Previously?: Yes Recently seen or treated by another doctor?: Yes Review of Systems - Adult - REVIEW OF SYSTEMS - ADULT Constitutional: denies: chills, fever Eyes: reports: no symptoms reported Ears, Nose, Mouth & Throat: reports: no symptoms reported Cardiovascular: reports: chest pain. denies: palpitations Respiratory: reports: cough, shortness of breath Gastrointestinal: reports: no symptoms reported Genitourinary: reports: no symptoms reported Musculoskeletal: reports: no symptoms reported Integumentary: reports: no symptoms reported Neurological: reports: no symptoms reported Psychiatric: reports: no symptoms reported Endocrine: reports: no symptoms reported Hematologic/Lymphatic: reports: no symptoms reported Allergic/Immunologic: reports: no symptoms reported All Other Systems: Reviewed and Negative Past History - Adult - PAST MEDICAL HISTORY-ADULT Review of Records: reports: Nursing Assessment Review, Medications Reviewed Major Childhood Illnesses: reports: denies history Cardiovascular: reports: HTN, hyperlipidemia, [place], other (small AAA) Respiratory: reports: COPD, sleep apnea Gastrointestinal: reports: GERD Obstetrical/Gynecological: reports: denies history Genitourinary: reports: denies history Musculoskeletal: reports: chronic pain Neurological: reports: denies history Endocrine/Immune: reports: Diabetes Diabetes Type: Type 2 Other Conditions: reports: denies history - PRIOR SURGERIES/PROCEDURES Surgical/Procedure History: reports: cardiac stent, hernia repair, joint replacement, back/neck, other (TURP, retnia detachment) - IMMUNIZATION STATUS Childhood Immunizations: See Nurse Assessment Flu Vaccine: See Nurse Assessment - SOCIAL HISTORY Smoking: cigarettes Provider spent 3-5 mins advising pt. on dangers of tobacco.: Discussed manners to quit use, and f/u contacts for add'l counseling. Physical Exam-General - CONSTITUTIONAL General Appearance: alert, no apparent distress - EYES Eyes: PERRL/EOMI, pink conjunctivae - HEAD, EARS, NOSE, MOUTH & THROAT HENMT: normocephalic/atraumatic, normal ENT inspection - NECK Neck: non-tender, normal inspection - RESPIRATORY Respiratory: increased rate - CARDIOVASCULAR Cardiovascular: normal peripheral pulses, regular rate, rhythm - MUSCULOSKELETAL Back Exam: no CVA tenderness, no vertebral tenderness Extremity: non-tender, normal inspection - SKIN Integumentary: normal color, warm/dry - NEUROLOGIC Neurologic: grossly normal, no motor/sensory deficits - PSYCHIATRIC Psych/Mental Status: normal mood/affect, normal thought content, normal thought process, oriented x 3 Progress - PLAN OF CARE/RESULTS Progress/Plan/Lab Results: Vital Signs - 8 hr 05/29/18 11:16 05/29/18 11:25 05/29/18 11:57 Temperature 97.7 F Pulse Rate 88 87 Respiratory Rate 30 H 26 H Blood Pressure 123/89 O2 Sat by Pulse Oximetry 87 L 87 L 05/29/18 12:14 Temperature Pulse Rate Respiratory Rate Blood Pressure O2 Sat by Pulse Oximetry 95 Laboratory Results - last 24 hr 05/29/18 05/29/18 05/29/18 11:15 11:30 11:30 WBC RBC Hgb Hct MCV MCH MCHC RDW Std Deviation Plt Count MPV Immature Gran % (Auto) Neut % (Auto) Lymph % (Auto) Marion % (Auto) Eos % (Auto) Baso % (Auto) Immature Gran # (Auto) Neut # (Auto) Lymph # (Auto) Marion # (Auto) Eos # (Auto) Baso # (Auto) PT INR PTT (Actin FS) D-Dimer, Quantitative Specimen Type ARTERIAL Sample Site R BRACHIAL pH 7.47 H pCO2 30 L pO2 48 L* HCO3 23.9 Base Excess -0.8 Oxyhemoglobin 85.0 L* ABG O2 Sat (Calculated) 17.3 ABG O2 Saturation 87.8 L ABG Carboxyhemoglobin 2.20 ABG Methemoglobin 1.0 Ashvin Test NO A-a O2 Difference 114.0 Total Hemoglobin 14.5 Lactate 2.90 H Liter Flow 2.0 Blood Gas Modality CANNULA FiO2 % 28.0 Sodium 134 L Potassium 5.5 H Chloride 96 L Carbon Dioxide 24 L Anion Gap 15 BUN 21 Creatinine 0.8 Estimated GFR/1.73 m2 > 60 BUN/Creatinine Ratio 26 Glucose 299 H Calculated Osmolality 282 Calcium 8.9 Magnesium 1.7 Total Bilirubin 0.50 AST 22 ALT 15 Alkaline Phosphatase 117 Creatine Kinase 48 Troponin T 0.013 Qnw-R-Ruskhxvdznn Pept Total Protein 6.5 Albumin 3.9 Globulin 3.0 Albumin/Globulin Ratio 2.0 Plasma Lactate 05/29/18 05/29/18 05/29/18 11:30 11:30 11:30 WBC 11.45 H RBC 3.94 L Hgb 13.1 L Hct 39.2 L MCV 99.5 H MCH 33.2 H MCHC 33.4 RDW Std Deviation 16.5 H Plt Count 317 MPV 9.9 Immature Gran % (Auto) 0.2 Neut % (Auto) 84.6 H Lymph % (Auto) 8.1 L Marion % (Auto) 6.0 Eos % (Auto) 0.5 Baso % (Auto) 0.6 Immature Gran # (Auto) 0.02 Neut # (Auto) 9.68 H Lymph # (Auto) 0.93 L Marion # (Auto) 0.69 H Eos # (Auto) 0.06 Baso # (Auto) 0.07 PT 12.9 INR 0.93 PTT (Actin FS) 29.4 D-Dimer, Quantitative Specimen Type Sample Site pH pCO2 pO2 HCO3 Base Excess Oxyhemoglobin ABG O2 Sat (Calculated) ABG O2 Saturation ABG Carboxyhemoglobin ABG Methemoglobin Ashvin Test A-a O2 Difference Total Hemoglobin Lactate Liter Flow Blood Gas Modality FiO2 % Sodium Potassium Chloride Carbon Dioxide Anion Gap BUN Creatinine Estimated GFR/1.73 m2 BUN/Creatinine Ratio Glucose Calculated Osmolality Calcium Magnesium Total Bilirubin AST ALT Alkaline Phosphatase Creatine Kinase Troponin T Rbf-[id number]-Ugiwsgnkprz Pept 1018 H Total Protein Albumin Globulin Albumin/Globulin Ratio Plasma Lactate 05/29/18 05/29/18 11:30 11:59 WBC RBC Hgb Hct MCV MCH MCHC RDW Std Deviation Plt Count MPV Immature Gran % (Auto) Neut % (Auto) Lymph % (Auto) Marion % (Auto) Eos % (Auto) Baso % (Auto) Immature Gran # (Auto) Neut # (Auto) Lymph # (Auto) Marion # (Auto) Eos # (Auto) Baso # (Auto) PT INR PTT (Actin FS) D-Dimer, Quantitative 1.39 H Specimen Type Sample Site pH pCO2 pO2 HCO3 Base Excess Oxyhemoglobin ABG O2 Sat (Calculated) ABG O2 Saturation ABG Carboxyhemoglobin ABG Methemoglobin Ashvin Test A-a O2 Difference Total Hemoglobin Lactate Liter Flow Blood Gas Modality FiO2 % Sodium Potassium Chloride Carbon Dioxide Anion Gap BUN Creatinine Estimated GFR/1.73 m2 BUN/Creatinine Ratio Glucose Calculated Osmolality Calcium Magnesium Total Bilirubin AST ALT Alkaline Phosphatase Creatine Kinase Troponin T Fqd-[id number]-Uajcieizswb Pept Total Protein Albumin Globulin Albumin/Globulin Ratio Plasma Lactate 2.3 H Orders Category Date Time Status Admit - [facility] Routine AdmDCTranf 05/29/18 14:57 Active Activity - Up with Assistance ORDERED Care 05/29/18 14:57 Active Cardiac Monitoring DIRECTED Care 05/29/18 11:18 Active DVT/PE Risk Assess/Protocol [QM] ORDERED Care 05/29/18 14:57 Active FSBS/Accucheck Result AC + HS Care 05/29/18 14:57 Active Intake and Output-Strict ORDERED Care 05/29/18 14:57 Active Oxygen Therapy- ED Nursing DIRECTED Care 05/29/18 11:18 Active Saline Loc NOW Care 05/29/18 11:18 Active Vital Signs Order Q 8-HR ASSESS Care 05/29/18 14:57 Active Z-Document. for Tele Applied ORDERED Care 05/29/18 14:59 Active Heart Healthy Diet Diet 05/29/18 14:58 Active CHEST-2 VIEWS [RAD] Stat Exams 05/29/18 11:[address] ANGIOGRM PULMONARY ARTERIES [CT] Stat Exams 05/29/18 12:27 Completed ABG [RESP] Routine Lab 05/29/18 11:15 Completed CBC WITH ELECTRONIC DIFF [HEME] Stat Lab 05/29/18 11:30 Completed CBC WITH NO DIFF [HEME] Routine Lab 05/30/18 06:00 Ordered CK PROFILE [SP CHEM] Stat Lab 05/29/18 11:30 Completed COMPREHENSIVE METABOLIC PANEL [CHEM] Routine Lab 05/30/18 06:00 Ordered COMPREHENSIVE METABOLIC PANEL [CHEM] Stat Lab 05/29/18 11:30 Completed D-DIMER [COAG] Stat Lab 05/29/18 11:30 Completed LACTATE, PLASMA [CHEM] Stat Lab 05/29/18 11:59 Completed MAGNESIUM [CHEM] Routine Lab 05/30/18 06:00 Ordered MAGNESIUM [CHEM] Stat Lab 05/29/18 11:30 Completed PRO B-NATRIURETIC PEPTIDE Stat Lab 05/29/18 11:30 Completed PROTIME WITH INR [COAG] Stat Lab 05/29/18 11:30 Completed PTT [COAG] Stat Lab 05/29/18 11:30 Completed TROPONIN T Stat Lab 05/29/18 11:30 Completed TSH Routine Lab 05/30/18 06:00 Ordered Albuterol 2.5MG/Ipratrop 0.5MG [Duoneb (A & A)] Med 05/29/18 11:45 Discontinued 6 ml INH NOW ONE Heparin Med 05/29/18 15:45 Discontinued 4,800 unit IV ONCE ONE Heparin 25,000 Units/D5w Med 05/29/18 15:00 Active 25,000 unit in 250 ml IV 9.58 mls/hr Rivaroxaban [Xarelto] Med 05/29/18 14:55 Discontinued 15 mg PO NOW ONE Aerosol Treatments Stat Oth 05/29/18 11:45 Completed CP/SOB/Palp >45 yrs of Age Stat Oth 05/29/18 11:17 Ordered Telemetry [OM.EQ] Routine Oth 05/29/18 14:57 Active EKG [EKG] Stat Ther 05/29/18 11:18 Draft Transfer/Admit Order [TRANSFER] Routine Transfer 05/29/18 15:50 Ordered Result Diagrams: 05/29/18 11:30 05/29/18 11:30 - EKG 1 Time of EKG reading by physician:: 11:52 EKG Read and Signed by:: Syed Galeano EKG Interpretation (*Must complete 3 of following elements*): Abnormal Rate: 90 Rhythm: normal sinus rhythm [place]: right (rightward axis) - XRAY 1 XRAY Study: Chest Impression: Abnormal (Multilobar bronchopneumonia in the left lung. Trace left pleural effusion.) XRAY Interpretation: per radiologist - CT/MRI 1 CT Study: Angiogram Impression: Abnormal (1. Rather extensive bilateral pulmonary emboli. 2. Faint nonspecific infiltrates bilaterally. This may represent pulmonary hemorrhage from infarctions or pneumonia. 3. Pulmonary nodule in the right upper lobe. 4. This report was discussed with Dr. Galeano on 05/29/2018 at 2:45 PM and was readback), See EMR Report CT Results: per radiologist Departure - Departure Date of Disposition Decision: 05/29/18 Time of Disposition Decision: 16:55 DIAGNOSIS: Multiple pulmonary emboli Disposition: ADMITTED INPATIENT 09 Certified Medical Emergency: Emergent Condition: Stable - Critical Care Note This patient required my direct & personal management of CC.: Yes Total Time (mins): 30 Critical Care Statement: This patient required my direct personal management to treat or rule out processes, the absence of which, could potentiallly result in sudden, clinically significant life or limb threatening deterioration. Attestation - Physician/ BRYAN Attestation Patient care was provided by Advanced Practice Provider:: No The physician spent face to face time with patient:: Yes Advanced Practice Provider documentation review:: Supervising physician onsite and consulted in the evaluation and care of this patient. The physician did have a face to face encounter with the patient. This chart was documented by the indicated scribe, (Char Lerner, Nafisa) and accurately reflects the services I performed and decisions made by me, Syed Galeano MD, as attested by the provider's signature.
[2018-05-29] MEDS ORDERED: LASIX IV STA ×2 (17:27→17:40)
[2018-05-29] MEDS ORDERED: LASIX ONE (17:51)
--- NOTE | 2018-05-29 19:09 | HISTORY AND PHYSICAL ---
CHIEF COMPLAINT: Shortness of breath. HISTORY OF PRESENT ILLNESS: Patient is a 68-year-old male who presented to the emergency department with increased shortness of breath for the past 3 to 4 days. Notes he has a history of coronary artery disease with stent placement and a history of blood clots although states that he has stopped his Xarelto due to being too expensive. His D-dimer was noted to be elevated and CTA showed that he has once again developed pulmonary emboli. ALLERGIES: Sulfa. MEDICATIONS: Norvasc 5, losartan 100, Cymbalta 60, Lipitor 10, Zofran 4 p.r.n., aspirin, atenolol 25, Prozac 40, metformin 500 b.i.d., Celebrex 100 b.i.d., Amaryl 4 b.i.d., testosterone injections. PAST MEDICAL HISTORY: Hypertension, hyperlipidemia, history of CA status post stenting, has a history of AAA that is being followed, COPD, sleep apnea, chronic reflux, chronic pain, diabetes, low testosterone. SURGICAL HISTORY: He has had cardiac stenting, his hernia repair, joint replacement, back surgery, has had a TURP and retinal detachment requiring surgical intervention. REVIEW OF SYSTEMS: As noted above. Patient does complain of coughing and shortness of breath, denies any real congestion or nasal congestion, denies any production to his cough. States that he gets increasing shortness of breath with any activity. Denies any PND, orthopnea, denies pedal edema, denies diarrhea, constipation, melena, hematochezia, denies any dysuria, frequency, denies hematemesis. FAMILY HISTORY: Noncontributory. SOCIAL HISTORY: The patient unfortunately continues to smoke, denies alcohol. Did discuss with patient the importance of stopping smoking. PHYSICAL: Vital Signs: Temperature 97.7, pulse 88, respiratory 30, BP 123/89, saturation 87% on room air. General: Patient is awake, alert, currently in mild respiratory distress, very pleasant to talk with. HEENT: Normocephalic. Neck: Supple. CARDIOVASCULAR: Regular rate. Chest: Clear, no crackles, no current wheezing. Abdomen: Soft, nondistended. Extremities: Moves all extremities, no edema. Neuro: No focal changes. LABS: WBCs 11, hemoglobin and hematocrit 39, sodium 134, potassium 5.5, glucose 299, D-dimer 1.3 and a BNP at 1018. CT demonstrates bilateral pulmonary emboli, a questionable infiltrate as well as a pulmonary nodule. ASSESSMENT: 1. Bilateral pulmonary emboli. 2. Diabetes with hyperglycemia. 3. Hyperkalemia. 4. Known coronary artery disease. 5. Questionable infiltrates versus pulmonary hemorrhage . 6. Pulmonary nodule. 7. Chronic tobacco abuse. Again discussed patient the perils of smoking and the importance on stopping. 8. Low testosterone with replacement. Discussed with patient the importance at this point of stopping testosterone injection as it does increase the opportunity to have clots as well as coronary artery disease. 9. Hyperkalemia, will watch and treat accordingly. 10. Hyponatremia. PLAN: Will admit patient the hospital. At this point, will place him on a heparin drip per protocol given the CT showed that he could possibly be having pulmonary hemorrhage. This way if that is in fact the case and it were to worsen the heparin could be quickly reversed. This will need to be followed closely. Unfortunately given his new onset pulmonary emboli, hypoxic respiratory failure and known coronary artery disease, he certainly needs to be treated with anticoagulant therapy until true contraindication is apparent. We will place on sliding scale insulin, continue to follow blood sugars. Restart his home medicines with the exception of testosterone. Discussed with him the importance of stopping that as well stopping smoking. cc: Timothy Madera MD
--- NOTE | 2018-05-29 19:17 | Diag Imaging Result Doc PS360 ---
CHEST-PORTABLE - 05/29/2018 6:04 PM INDICATION: abnormal chest exam COMPARISON: 11:54 AM FINDINGS: There is little change in the ill-defined infiltrate throughout the left lung. IMPRESSION: Little change in the multilobar left infiltrate. Please see the chest CT report from immediately earlier. Electronically signed by Brandt Bejarano 05/29/2018 7:15 PM
[2018-05-29] MEDS: HEPARIN 25,000 UNITS/D5W 25,000 UNIT/250 ML IV.SOLN IV SCH (22:55)
--- NOTE | 2018-05-30 03:13 | PULMONOLOGY CONSULTATION ---
DATE: 05/29/2018 REASON FOR CONSULTATION: Pulmonary emboli. HISTORY OF PRESENT ILLNESS: Mr. Enrique is a 68-year-old, white male with a greater than 50 pack year history for tobacco (he stopped conventional cigarettes and started vaping in 2016) who was diagnosed with an unprovoked bilateral pulmonary emboli in July of 2016. The patient had a clot in his right lower extremity without significant symptoms. The patient was on Xarelto for 1 year under the direction of Dr. Chaudhary and this was stopped in August of 2017. The patient reports he has done well since that time. Over the last 3 days, he has noted increasing shortness of breath. He initially did not attribute it to his known history of blood clots but thought maybe it was due to weight gain. This morning, his shortness of breath was more significant and he presented to the emergency room. He denies cough or sputum production. He denies fevers or chills, or recent upper respiratory infection. CT pulmonary angiogram revealed bilateral pulmonary emboli with a moderate clot burden, moderate emphysema, a new pulmonary nodule measuring 1.2 cm in the right upper lobe, along with nonspecific faint infiltrates bilaterally. The patient was hypoxemic upon arrival. He was transferred to [facility] and his oxygen requirements had increased to 50%. He was mildly hypertensive. He did receive a small dose of Lasix. He reports good urine output. He reports his shortness of breath has resolved. Oxygen saturation is now 99%. He reports he may have had "a twinge" of pain in the right lower extremity but none to complain about. PAST MEDICAL HISTORY/PROBLEM LIST: 1. Bilateral pulmonary emboli, previously on Xarelto as per above. 2. Coronary artery disease with myocardial infarction in 2012. The patient underwent a stent placement in a 99% blocked LAD lesion. 3. COPD. 4. Hypertension. 5. Diabetes mellitus. 6. Dyslipidemia. 7. Arthritis. 8. Testosterone deficiency, on replacement injections. 9. Obstructive sleep apnea. 10. Status post back fusion at L4-L5. 11. Status post bilateral knee replacements. 12. Status post left hip replacement. 13. Gastroesophageal reflux disease. 14. Chronic pancreatitis, on replacement therapy. 15. Status post TURP. 16. History of penile prosthesis. SOCIAL HISTORY: Prior tobacco use. Currently, he is vaping. FAMILY HISTORY: Notable for abdominal aortic aneurysm, hypertension, brain cancer, and dementia. REVIEW OF SYSTEMS: As noted in the HPI but otherwise, a 12 point review of systems is negative. PHYSICAL EXAMINATION: General: Reveals a well-developed, well-nourished, white male, resting comfortably and in no distress. Vital Signs: BP 127/81, heart rate 100, respiratory rate 18, oxygen saturation 94% on nasal cannula. HEENT: Pupils are equal and reactive. Oropharynx is clear. Neck: Supple. Chest: Reveals good air entry bilaterally without wheezing, rales, or tactile fremitus. Cardiac Examination: Normal S1, normal S2. No splitting of the heart sounds. No right ventricular heave. Abdomen: Soft. Extremities: Reveal mild varicosities, predominantly in the right lower extremity. LABORATORIES: Arterial blood gas reveals a pH of 7.47, pCO2 of 30, a PO2 of 48 on 2 L per nasal cannula. White blood count 11.45, hemoglobin 13.1, platelet count 317,000. Sodium 134, potassium 5.5, chloride 96, bicarbonate 24, BUN 21, creatinine 0.8. IMPRESSION: A 68-year-old with second episode of unprovoked pulmonary emboli, acute hypoxemic respiratory failure, a solitary pulmonary nodule, vape use, with nonspecific pulmonary infiltrate. Infiltrate does not have a typical pattern of a pulmonary infarction. RECOMMENDATIONS: 1. Continue heparin as you are doing. The patient can be switched to Xarelto at the discretion of the hospitalist service. 2. Continue oxygen for hypoxemic respiratory failure. 3. Abstinence from all nicotine products is recommended. 4. Recommend a PET scan in 4 to 6 weeks to follow up the solitary pulmonary nodule. 5. Additional recommendations pending hospital course. cc: Tl Kaur MD
[2018-05-30 05:11] LABS: HEMATOCRIT 39.3 % (42.0-52.0); HEMOGLOBIN 13.1 g/dL (14.0-18.0); MCH 33.6 PG (27-31); MCHC 33.3 g/dL (33-37); MCV 100.8 FL (81-99); MPV 9.9 FL (7.4-10.4); RBC 3.9 XMIL (4.7-6.1); RDW 16.8 % (11.5-14.5); WBC 10.03 X1000 (4.8-10.8)
[2018-05-30 05:49] LABS: AGAP 13; ALB/GLOB RATIO 1.4; ALBUMIN 3.7 g/dL (3.5-5.0); ALKALINE PHOSPHATASE 102 U/L (32-122); BUN 15 mg/dL (8-22); CALCIUM 9.1 mg/dL (8.8-10.2); CHLORIDE 94 mmol/L (98-107); COSMO 275; CREATININE 0.6 mg/dL (0.7-1.2); ESTIMATED GFR > 60; GLUCOSE 168 mg/dL (70-104); GOT 15 U/L (10-34); GPT 14 U/L (10-44); MAGNESIUM 1.8 mg/dL (1.5-2.7); SODIUM 135 mmol/L (136-145); TCO2 28 mmol/L (25-35); TOTAL BILIRUBIN 0.54 mg/dL (0.20-1.00); TOTAL PROTEIN 6.4 g/dL (6.3-8.3)
[2018-05-30] MEDS ORDERED: HEPARIN IV PRN (05:50)
--- NOTE | 2018-05-30 06:49 | Diag Imaging Result Doc PS360 ---
EXAM: CHEST-PORTABLE HISTORY: resp. failure TECHNIQUE: Portable chest single view COMPARISON: 05/29/2018 FINDINGS: The lungs are well expanded. The heart is not enlarged. The vessels are not distended. There are left-sided infiltrates similar to the prior study. No effusion identified. IMPRESSION: Stable chest Electronically signed by Chintan Jensen 05/30/2018 6:47 AM
[2018-05-30] MEDS ORDERED: NORCO-7.5 PO PRN (07:31)
[2018-05-30] MEDS: LEVAQUIN PO SCH (08:21)
[2018-05-30] MEDS: CYMBALTA PO SCH ×2 (08:21→20:54)
[2018-05-30] MEDS: HEPARIN 25,000 UNITS/D5W 25,000 UNIT/250 ML IV.SOLN IV SCH (10:48)
--- NOTE | 2018-05-30 14:10 | PROGRESS NOTE ---
DATE: 05/30/2018 INTERVAL HISTORY: The patient remains on Ventimask to maintain oxygenation. Dyspnea somewhat improved. No hemoptysis. No dizziness, chest pain, diaphoresis. No acute events overnight. No new complaints. REVIEW OF SYSTEMS: Twelve point review of systems is negative except as per interval history. LABS: WBC 10.0, hemoglobin 13.1, hematocrit 39.3, platelets 302,000. Sodium 135, potassium 4, chloride 94, BUN 15, creatinine 0.6, glucose 173. LFTs unremarkable. Magnesium 1.8. VITAL SIGNS: T-max 98.8 degrees, pulse 101, respirations 15, blood pressure 119/78, O2 saturation 100% on 15 L by Venturi mask. PHYSICAL EXAMINATION: General: No acute distress. Vital signs: As above. HEENT: Normocephalic, atraumatic. Moist mucous membranes. No cervical adenopathy. Cardiovascular: Minimally tachycardic but regular. No murmurs, rubs, or gallops noted. Pulmonary: Good air entry throughout. No wheezing or rhonchi. Slight right lower lobe crackles. Abdomen: Soft, nontender, nondistended. Bowel sounds positive. Extremities: Peripheral pulses intact. No clubbing, cyanosis, or edema. Neurologic: Cranial nerves 2-12 grossly intact. No focal motor or sensory deficits. Psychiatric: Normal mood and affect. Awake, alert, oriented x3. Skin: No new rashes or lesions identified. ASSESSMENT AND PLAN: 1. Bilateral pulmonary emboli with acute hypoxic respiratory failure. The patient remains on heparin drip. No issues with bleeding thus far. Oxygenation essentially stable from overnight. Continue heparin drip. Continue Venturi mask. Will wean oxygen as tolerated. If patient remains stable today, then may transition to p.o. anticoagulation tomorrow. 2. Possible pneumonia. Initial CTA showing faint nonspecific infiltrates which could represent small pulmonary hemorrhages related to PTE versus pneumonia. Favor infarctions but given high O2 requirements, will cover for possible community-acquired pneumonia with Levaquin for now. 3. Hyponatremia, essentially resolved. Continue to monitor labs. 4. Diabetes. Reasonable control of glucose on sliding scale insulin. Continue to monitor. 5. Hyperkalemia, now resolved. Kidney function normal. Continue to monitor labs. 6. Anemia. Mild and blood counts stable. Continue to monitor labs. 7. Coronary artery disease. No recent stent. Holding home aspirin for the moment given heparin drip but if no signs or symptoms of bleeding develop, will likely restart baby aspirin tomorrow. 8. Pulmonary nodule, incidentally noted on CTA. Discussed with the patient this will need further workup as an outpatient to evaluate for malignancy. 9. Tobacco abuse. Patient offered nicotine patch and counseled on cessation. 10. Deep vein thrombosis prophylaxis. Heparin.
[2018-05-30] MEDS ORDERED: PERCOCET-5 PO PRN (14:34)
[2018-05-30] MEDS: TYLENOL PO PRN (20:54)
--- NOTE | 2018-05-31 01:13 | PULMONOLOGY PROGRESS NOTE ---
DATE: 05/30/2018 SUBJECTIVE: Patient reports he has had a good day. He denies shortness of breath. He is currently on a nonrebreather but reports he has been taking it off and watching his oxygen saturation see how long it takes to get to 90% (3 to 4 minutes). OBJECTIVE: BP 130/87, heart rate 96, respiratory rate 15, oxygen saturation 100% on nonrebreather.HEENT: Pupils are equal and reactive. Oropharynx is clear. Neck: Supple. Chest: Reveals good air entry bilaterally without wheezing, rales, or tactile fremitus. There are occasional crackles at the left base. Cardiac: S1-S2. Abdomen: Is soft. Extremities: Without edema. LABORATORIES: White blood count 10.03, hemoglobin 13.1, platelet count 302,000. Sodium 135, potassium 4.0, chloride 94, bicarbonate 28, BUN 15, creatinine 0.6, glucose 168. Chest x-ray unchanged. IMPRESSION: 68-year-old with 2nd episode of unprovoked pulmonary emboli, acute hypoxemic respiratory failure, solitary pulmonary nodule, continued e-cigarette/vape use with nonspecific pulmonary infiltrate. Clinically the patient reports he feels better. RECOMMENDATIONS: 1. Continue heparin with anticipation of oral agent tomorrow. 2. Continue oxygen for hypoxemic respiratory failure. 3. Recommend abstinence of all tobacco products. 4. Recommend outpatient PET scan in 4 to 6 weeks to reevaluate the solitary pulmonary nodule identified on initial scan. cc: Tl Kaur MD
[2018-05-31] MEDS ORDERED: HEPARIN 25,000 UNITS/D5W 25,000 UNIT/250 ML IV.SOLN IV SCH (06:30)
[2018-05-31] MEDS: LEVAQUIN PO SCH (08:53)
[2018-05-31] MEDS: CYMBALTA PO SCH ×2 (08:53→20:30)
[2018-05-31] MEDS: XARELTO PO SCH ×2 (11:05→20:30)
--- NOTE | 2018-05-31 13:41 | PROGRESS NOTE ---
DATE: 05/31/2018 INTERVAL HISTORY: Patient with no dyspnea at rest. No hemoptysis or hematemesis. O2 requirement improving slowly. Now down to Venturi mask from nonrebreather. Appears to be maintaining saturations adequately at this time. No other acute events overnight. No new complaints. Remains on heparin drip currently. REVIEW OF SYSTEMS: A 12 point review of systems negative except as per interval history. LABS: PTT 63.4. Glucose 189. OBJECTIVE: VITAL SIGNS: T-max 98.4 degrees Fahrenheit, pulse 93, respirations 17, blood pressure 112/75. O2 saturation 99% on Venturi mask. GENERAL: In no acute distress. HEENT: Normocephalic and atraumatic. Moist mucous membranes. NECK: No cervical lymphadenopathy. CARDIOVASCULAR: Regular rate and rhythm. No murmur, rub or gallop. PULMONARY: Minimal right lower lobe crackles remain. Otherwise clear to auscultation bilaterally. ABDOMEN: Soft, nontender, nondistended. Bowel sounds positive. EXTREMITIES: Peripheral pulses intact. No clubbing, cyanosis or edema. NEUROLOGIC: Cranial nerves II-XII are grossly intact. No focal motor sensory deficits. PSYCHIATRIC: Normal mood and affect. Awake, alert and oriented x3. SKIN: No new rashes or lesions identified. ASSESSMENT AND PLAN: 1. Bilateral pulmonary emboli with acute hypoxic respiratory failure. Patient remains on heparin drip. He has had no bleeding since presentation. We will transition from heparin drip to p.o. Xarelto. Oxygenation improving but slowly. Still requiring Venturi mask to maintain O2 saturations. We will continue to wean oxygen as tolerated and likely move to a regular floor bed later today. 2. Possible pneumonia. Initial CTA showing faint nonspecific infiltrates. Favor infarctions but given to high O2 requirements we are covering for possible community-acquired pneumonia with Levaquin. 3. Hypernatremia, improving on last check. Mild to begin with. Repeat labs pending. No need for acute intervention at this time. 4. Diabetes. Reasonable control with glucose on current sliding scale. Continue to monitor glucoses. 5. Hyperkalemia, now resolved. Continue to monitor. 6. Anemia, mild. Last check stable. Repeat pending. 7. Coronary artery disease. No recent stent. Holding aspirin given anticoagulation, but will likely restart baby aspirin prior to discharge. 8. Pulmonary nodule incidentally noted on CTA. Discussed with patient this will need further workup as an outpatient to evaluate for a malignancy. 9. Tobacco abuse. Patient given nicotine patch and counseled on cessation. 10.Deep venous thrombosis prophylaxis. Heparin.
[2018-06-01 05:33] LABS: BASO# 0.05 X1000 (0.0-0.2); BASO% 0.6 % (0.0-0.8); EOS# 0.31 X1000 (0.0-0.7); HEMATOCRIT 40.7 % (42.0-52.0); HEMOGLOBIN 13.5 g/dL (14.0-18.0); LYMPH# 1.42 X1000 (1.2-3.4); LYMPH% 18.2 % (20.5-51.1); MCHC 33.2 g/dL (33-37); MCV 99.5 FL (81-99); MONO# 0.74 X1000 (0.11-0.59); MONO% 9.5 % (1.7-9.3); MPV 9.7 FL (7.4-10.4); NEUT# 5.29 X1000 (1.4-6.5); NEUT% 67.7 % (42.2-75.2); PLT 325 X1000 (130-400); RBC 4.09 XMIL (4.7-6.1); WBC 7.81 X1000 (4.8-10.8)
[2018-06-01 06:27] LABS: AGAP 11; BUN 14 mg/dL (8-22); CALCIUM 8.8 mg/dL (8.8-10.2); CHLORIDE 95 mmol/L (98-107); COSMO 278; CREATININE 0.7 mg/dL (0.7-1.2); ESTIMATED GFR > 60; GLUCOSE 200 mg/dL (70-104); POTASSIUM 4.7 mmol/L (3.5-5.1); SODIUM 136 mmol/L (136-145); TCO2 30 mmol/L (25-35)
--- NOTE | 2018-06-01 07:32 | Diag Imaging Result Doc PS360 ---
EXAM: CHEST-PORTABLE INDICATION: resp. failure TECHNIQUE: One view COMPARISON: 05/30/2018 FINDINGS: Ill-defined infiltrate throughout the left lung appears to be slightly worse. There has been development of a small left pleural effusion. The right lung remains clear. Cardiac silhouette is stable. IMPRESSION: Interval slight worsening of diffuse left lung consolidation and development of a small left effusion. Electronically signed by Hao Easton 06/01/2018 7:30 AM
[2018-06-01] MEDS: CYMBALTA PO SCH ×2 (08:14→21:58)
[2018-06-01] MEDS: LEVAQUIN PO SCH (08:14)
[2018-06-01] MEDS: XARELTO PO SCH ×2 (08:14→17:12)
--- NOTE | 2018-06-01 15:24 | PROGRESS NOTE ---
DATE: 06/01/2018 INTERVAL HISTORY: Patient with no dyspnea at rest. No new complaints. No acute events overnight. Continues to require oxygen but this does appear to be improving. REVIEW OF SYSTEMS: A 12 point review of systems is negative except as per the interval history. LABS: WBC 7.8, hemoglobin 13.5, hematocrit 40.7, and platelets 325. Glucose 170 to 238. Basic metabolic panel is otherwise unremarkable. VITAL SIGNS: T-max 98.6, pulse 95, respirations 18, blood pressure 138/90, and O2 saturation 100% on Venturi mask with 50% FiO2. PHYSICAL EXAMINATION: General: No acute distress. Vitals: As above. HEENT: Normocephalic, atraumatic. Moist mucous membranes. Neck: No cervical adenopathy. Cardiovascular: Regular rate and rhythm. No murmurs, rubs, or gallops. Pulmonary: Right lower lobe crackles, improved. Largely clear to auscultation at this point. Abdomen: Soft, nontender, and nondistended. Bowel sounds positive. Extremities: Peripheral pulses intact. No clubbing, cyanosis, or edema. Neurologic: Cranial nerves 2 through 12 are grossly intact. No focal motor or sensory deficits. Psychiatric: Normal mood and affect. Awake, alert, oriented times 3. Skin: No new rashes or lesions identified. ASSESSMENT AND PLAN: 1. Bilateral pulmonary emboli with acute hypoxic respiratory failure. Patient in transition from a heparin drip to Xarelto. Oxygenation improving slowly. Still requiring Venturi mask but some more room to wean down today. Continue to wean oxygen as tolerated. We will move off the CIC today. Anticipate discharge once oxygenation has improved. 2. Possible pneumonia. Initial CTA showing faint nonspecific infiltrates. Favor infarction but given high O2 requirements we are covering for community-acquired pneumonia with Levaquin regardless. The patient is symptomatically much improved and oxygenation is improving slowly as above. 3. Hyponatremia, now resolved. Continue to monitor labs. 4. Hyperkalemia, also resolved. Continue to monitor labs. 5. Diabetes, slightly worsened glucose control today. We will increase sliding scale insulin and monitor. 6. Coronary artery disease. No recent stent. Held aspirin initially given anticoagulation but we will restart in the morning. 7. Tobacco abuse. Patient given a nicotine patch and counseled on cessation. 8. Pulmonary nodule, incidental finding on CTA. Discuss with the patient. While there are no highly concerning attributes like spiculation this will still need further workup as an outpatient to evaluate for possible malignancy. 9. Deep vein thrombosis prophylaxis with Xarelto.
[2018-06-01] MEDS: HUMULIN R SUBQ SCH ×3 (17:11→21:58)
[2018-06-01] MEDS: ULTRAM PO PRN (18:55)
[2018-06-01] MEDS: PROSCAR PO SCH (21:58)
[2018-06-02] MEDS: ULTRAM PO PRN ×2 (01:07→18:46)
[2018-06-02] MEDS: TYLENOL PO PRN ×2 (03:53→21:22)
[2018-06-02 06:25] LABS: BASO# 0.08 X1000 (0.0-0.2); EOS# 0.33 X1000 (0.0-0.7); EOS% 4.1 % (0.0-10.0); HEMATOCRIT 40.3 % (42.0-52.0); HEMOGLOBIN 13.3 g/dL (14.0-18.0); LYMPH# 1.61 X1000 (1.2-3.4); MCH 32.5 PG (27-31); MCV 98.5 FL (81-99); MONO# 0.79 X1000 (0.11-0.59); MONO% 9.8 % (1.7-9.3); MPV 9.7 FL (7.4-10.4); NEUT# 5.24 X1000 (1.4-6.5); NEUT% 65.1 % (42.2-75.2); PLT 332 X1000 (130-400); RBC 4.09 XMIL (4.7-6.1); RDW 15.8 % (11.5-14.5); WBC 8.05 X1000 (4.8-10.8)
[2018-06-02] MEDS: HUMULIN R SUBQ SCH ×4 (06:43→21:27)
[2018-06-02 06:57] LABS: HEMOGLOBIN A1C 7.8 % (4.8-6.0)
[2018-06-02 07:30] LABS: AGAP 11; BUN 15 mg/dL (8-22); CALCIUM 9.4 mg/dL (8.8-10.2); CHLORIDE 95 mmol/L (98-107); COSMO 271; CREATININE 0.8 mg/dL (0.7-1.2); ESTIMATED GFR > 60; GLUCOSE 170 mg/dL (70-104); POTASSIUM 3.8 mmol/L (3.5-5.1); SODIUM 133 mmol/L (136-145); TCO2 27 mmol/L (25-35)
--- NOTE | 2018-06-02 07:42 | PULMONOLOGY PROGRESS NOTE ---
DATE: 06/01/2018 SUBJECTIVE: Patient awake, alert, and conversant. He reports he feels better. He reports his breathing has markedly improved. He denies chest wall pain. OBJECTIVE: Vital Signs: Stable. He is afebrile. Oxygen saturation 100% on 50% Venturi mask. HEENT: Pupils are equal and reactive. Oropharynx is clear. Neck: Supple. Chest: Crackles at the left base. Cardiac: S1, S2. Abdomen: Soft and without hepatosplenomegaly. Extremities: Without edema. IMAGING AND LABORATORY DATA: Chest x-ray reveals increased interstitial markings, left greater than right lung. White blood count 7.8, hemoglobin 13.5, platelet count 325,000. Sodium 136, potassium 4.7, chloride 95, bicarbonate 30, BUN 14, creatinine 0.7. IMPRESSION: A 68-year-old with second unprovoked pulmonary embolus, acute hypoxemic respiratory failure, solitary pulmonary nodule, ongoing e-cigarette use, with nonspecific pulmonary infiltrate. Some of the changes in the left lung may be related to the pulmonary embolus. Clinically, he is improving, and he is now on 50% FiO2, but his saturation is 100%. RECOMMENDATIONS: 1. Continue anticoagulation. 2. Continue oxygen for hypoxemic respiratory failure. Will initiate the O2 protocol to augment weaning. 3. Encourage abstinence from all tobacco products. 4. Followup PET scan in 4 to 6 weeks to re-evaluate the solitary pulmonary nodule. cc: Tl Kaur MD
[2018-06-02] MEDS: PRILOSEC PO SCH (09:15)
[2018-06-02] MEDS: XARELTO PO SCH ×2 (09:15→18:46)
[2018-06-02] MEDS: LEVAQUIN PO SCH (09:16)
[2018-06-02] MEDS: CYMBALTA PO SCH ×2 (09:16→21:22)
[2018-06-02] MEDS: LIPITOR PO SCH (09:16)
[2018-06-02] MEDS ORDERED: DUONEB (A & A) INH PRN (20:02)
[2018-06-02] MEDS: PROSCAR PO SCH (21:22)
[2018-06-02] MEDS: AMARYL PO SCH (21:25)
[2018-06-02] MEDS: GLUCOPHAGE PO SCH (21:40)
--- NOTE | 2018-06-03 05:48 | PROGRESS NOTE ---
DATE: 06/02/2018 SUBJECTIVE: Patient has no focal complaints. He actually wanted to go home. OBJECTIVE DATA: Vital Signs: Blood pressure is 134/86, heart rate is 117, respiratory rate 20, temperature 98.6 degrees. It was 92% on room air. Cardiovascular: Regular rate and rhythm. Pulmonary: Bilateral breath sounds, decreased at the bases. GI: Was soft, nontender. Bowel sounds were positive. Extremities: Have no clubbing or cyanosis. Lymphatic: No peripheral edema. Neurological: Nonfocal. LABORATORY DATA: White count 8, hemoglobin and hematocrit 13 and 40, platelets 332,000. Basic was pretty much normal. PROBLEM LIST: 1. Acute pulmonary embolus, bilateral. He is on Xarelto and seems to be doing okay. He is on room air. Now that being said, he was on 50% yesterday, so I am not quite sure he is ready to leave and I would I think we need to evaluate if he needs oxygen with exertion, so we are going to pursue that today. 2. Possible pneumonia. He is on Levaquin. We will continue to follow. Most likely, this is pulmonary infarct. 3. Diabetes, which is not working completely, but he is not getting any of his regular medications for that. So we will resume his metformin and glimepiride, and he is supposed to be on atenolol and amlodipine. So, we will continue those medicines and follow closely. DISPOSITION: I anticipate discharge tomorrow. He may require home oxygen. Discussed with Respiratory about evaluating him for that. We will continue to follow. cc: Zain Leslie MD
[2018-06-03 06:56] LABS: BASO# 0.08 X1000 (0.0-0.2); EOS% 5.2 % (0.0-10.0); HEMATOCRIT 38.7 % (42.0-52.0); HEMOGLOBIN 12.9 g/dL (14.0-18.0); LYMPH# 1.68 X1000 (1.2-3.4); LYMPH% 21.7 % (20.5-51.1); MCHC 33.3 g/dL (33-37); MONO# 0.83 X1000 (0.11-0.59); MONO% 10.7 % (1.7-9.3); MPV 9.4 FL (7.4-10.4); NEUT# 4.74 X1000 (1.4-6.5); NEUT% 61.4 % (42.2-75.2); PLT 358 X1000 (130-400); RBC 3.91 XMIL (4.7-6.1); RDW 15.9 % (11.5-14.5); WBC 7.73 X1000 (4.8-10.8)
[2018-06-03 07:19] LABS: EOS 4 % (1-10); LYMPHS 10 % (21-51); MONO 6 % (1-9); SEGS 80 % (42-75)
[2018-06-03 07:21] LABS: AGAP 11; BUN 16 mg/dL (8-22); CALCIUM 9.2 mg/dL (8.8-10.2); CHLORIDE 98 mmol/L (98-107); COSMO 277; CREATININE 0.8 mg/dL (0.7-1.2); ESTIMATED GFR > 60; GLUCOSE 163 mg/dL (70-104); POTASSIUM 4.2 mmol/L (3.5-5.1); SODIUM 136 mmol/L (136-145); TCO2 27 mmol/L (25-35)
--- NOTE | 2018-06-03 07:21 | PULMONOLOGY PROGRESS NOTE ---
DATE: 06/02/2018 SUBJECTIVE: The patient is awake, alert and conversant. He reports he has been ambulating short distances in the [place]. His oxygen requirements have significantly decreased and he is now 98% on 2 L per nasal cannula. OBJECTIVE: HEENT: Pupils are equal and reactive. Oropharynx is clear. Neck: Is supple. Chest: Reveals good air entry bilaterally with faint crackles at the left base. Cardiac: S1- S2. Abdomen: Soft and without hepatosplenomegaly. Extremities: Without edema. IMPRESSION: A 68-year-old with 2nd episode of unprovoked pulmonary emboli, acute hypoxemic respiratory failure, solitary pulmonary nodule identified on CT scan, ongoing tobacco use and nonspecific infiltrate on the left. Clinically his oxygen requirements continue to improve. His shortness of breath has resolved. He is now on nasal cannula. RECOMMENDATIONS: 1. Continue antibiotics. 2. Wean oxygen as tolerated. Hopefully he can be discharged in the next 24 to 48 hours. 3. Chest x-ray tomorrow. 4. Encourage abstinence from all tobacco products. 5. Recommend follow up PET scan in 4-6 weeks. This can be performed by Dr. Chaudhary or could be performed in my office if he is scheduled for a visit. cc: Tl Kaur MD
[2018-06-03] MEDS: HUMULIN R SUBQ SCH ×2 (08:07→12:49)
--- NOTE | 2018-06-03 08:29 | Diag Imaging Result Doc PS360 ---
CHEST-2 VIEWS - 06/03/2018 INDICATION: abnormal exam COMPARISON: 06/01/2018 FINDINGS: The lungs are normally expanded and clear. Heart size and mediastinal contours are normal. No pneumothorax or pleural effusion. IMPRESSION: Negative exam. Electronically signed by Brandt Bejarano 06/03/2018 8:26 AM
[2018-06-03] MEDS: LEVAQUIN PO SCH (08:52)
[2018-06-03] MEDS: PRILOSEC PO SCH (08:52)
[2018-06-03] MEDS: CYMBALTA PO SCH (08:53)
[2018-06-03] MEDS: LIPITOR PO SCH (08:53)
[2018-06-03] MEDS: AMARYL PO SCH (08:53)
[2018-06-03] MEDS: XARELTO PO SCH (08:53)
[2018-06-03] MEDS: GLUCOPHAGE PO SCH (08:54)
[2018-06-03] MEDS ORDERED: COZAAR PO SCH (09:00)
[2018-06-03] MEDS ORDERED: TENORMIN PO SCH (09:00)
[2018-06-03] MEDS ORDERED: NORVASC PO SCH (09:00)
[2018-06-03 11:46] VITALS: BP 118/78
--- NOTE | 2018-06-27 10:57 | DISCHARGE SUMMARY ---
ADMISSION DATE: 05/29/2018 DISCHARGE DATE: 06/03/2018 DISCHARGE DIAGNOSES: 1. Acute pulmonary embolism, bilateral. 2. Pneumonia versus pulmonary infarct. 3. Diabetes. CONSULTATIONS: Pulmonary, Dr. Kaur. PROCEDURES: None. HOSPITAL COURSE: Briefly, this is a 68-year-old male presenting to Dr. Madera. Admitted for shortness of breath. D-dimer was elevated. CTA showed bilateral PE with a questionable infiltrate. He was placed on heparin initially. Pulmonary was consulted and recommended Xarelto. The patient was hypoxic initially but he improved slowly. Recommended outpatient PET scan 4 to 6 weeks for solitary pulmonary nodule. By the , he was able to be weaned off oxygen, although not completely. We did evaluate him for oxygen. He was set up with home oxygen. His x-ray on the was normal. His saturations were 100%, but he did drop. He did qualify for oxygen with exertion. DISCHARGE MEDICATIONS: Proscar 5, Norvasc 5, Tenormin 25, Lipitor 10, Cymbalta 60 b.i.d., Amaryl 4 b.i.d., Cozaar 100 daily, Glucophage 1 g b.i.d., modafinil 200 b.i.d., Prilosec 40 daily, Zofran, testosterone monthly, Xarelto 15 b.i.d. for the first 3 weeks and then 20 daily, Levaquin 500 daily for 7 days, and then Phenergan p.r.n. DISCHARGE CONDITION: Stable. FOLLOWUP: He is to follow up with Dr. Kaur in 1 to 2 weeks and his PCP, Dr. Madera, in 1 to 2 weeks. Return for worsening shortness of breath. He will need outpatient PET scan per Dr. Chaudhary or Dr. Kaur in 4 to 6 weeks to evaluate pulmonary nodule. A 32 minute discharge. cc: Zain Leslie MD
== END 2018-06-03 13:57 | disposition home health service (06) | DRG 175 ==
LOC: P.ED 11:17 → 3N 16:23 → SUATTDRO 16:23 → 3N 16:45 → 3S 17:49 → 4N 06-01 15:01
PROVIDERS: ATTEND Internal Medicine
CPT/HCPCS: 71010; 71020; 71045; 71046; 71275; 80048; 80053; 82550; 82805; 82948; 83036; 83605; 83735; 83880; 84443; 84484; 85025; 85027; 85379; 85610; 85730; 93005; 94640; 94761; 94762; 96365; 96375; 99285; A9270; J1644; J1940; Q9967; S0138; XXXXX